=== PATIENT | male | born 1955 | race Caucasian/White ===

== ENCOUNTER → 2017-09-08 | Outpatient (CLI) | payer BC ==
[2017-09-08 11:43] LABS: HCT 44.1 % (39.0-53.0); HGB 13.8 gm/dL (13.0-17.5); Hypochromasia Slight; MCH 28.7 pg (25.0-35.0); MCHC 31.3 g/dL (31.0-37.0); MCV 91.8 fL (80.0-100.0); Mean Platelet Volume 7.7; Platelet Count 199 k/uL (150-450); RBC 4.81 m/uL (4.30-5.90); RDW 12.9 % (11.5-15.5); WBC 8.1 k/uL (3.8-10.6)
[2017-09-08 11:49] LABS: Anion Gap 10 mmol/L; Blood Urea Nitrogen 17 mg/dL (9-20); Calcium 9.3 mg/dL (8.4-10.2); Carbon Dioxide 24 mmol/L (22-30); Chloride 104 mmol/L (98-107); Glucose 94 mg/dL (74-99); Potassium 4.4 mmol/L (3.5-5.1); Sodium 138 mmol/L (137-145)
== END | disposition home or self-care (01) ==
LOC: LABWHC1 10:44
PROVIDERS: ATTEND Internal Medicine Clinical Cardiac Electrophysiology
DX: I48.1 Persistent atrial fibrillation (principal); I47.1 Supraventricular tachycardia
CPT/HCPCS: 36415; 80048; 85027

== ENCOUNTER 2017-09-13 11:25 | Day surgery (SDC) | payer BC, OTHER ==
[2017-09-12 09:23] VITALS: BMI 34.8
[~2017-09-13 11:25] MED LIST: LIDOCAINE 1% 20 ML VIAL (10MG/ML) FOR IV START INTRADERMA PRN
[2017-09-13] MEDS: SODIUM CHLORIDE 0.9% 1,000 ML IV SCH ×2 (12:13→20:07)
[2017-09-13 12:25] LABS: INR 2.4 (<1.2); Prothrombin Time 21.6 sec (9.0-12.0)
[2017-09-13] MEDS ORDERED: SUCCINYLCHOLINE CHLORIDE 100 MG/5 ML SYR IV ONE (12:50)
[2017-09-13] MEDS ORDERED: fentaNYL (PF) 50 MCG/ML 2 ML AMP ONE (12:50)
[2017-09-13] MEDS ORDERED: PROTAMINE SULFATE 10 MG/ML 5 ML VIAL IV ONE (12:50)
[2017-09-13] MEDS ORDERED: MIDAZOLAM 2 MG/2 ML VIAL ONE (12:50)
[2017-09-13] MEDS ORDERED: NEOSTIGMINE 1 MG/ML 10 ML VIAL ONE (12:50)
[2017-09-13] MEDS ORDERED: PROPOFOL 10 MG/ML 20 ML VIAL IV ONE (12:50)
[2017-09-13] MEDS ORDERED: FUROSEMIDE 10 MG/ML 2 ML VIAL ONE (12:50)
[2017-09-13] MEDS ORDERED: HEPARIN SODIUM,PORCINE 10,000 UNIT/ML 1 ML VIAL ONE (12:50)
[2017-09-13] MEDS ORDERED: PHENYLEPHRINE-0.9% NACL SYG 1 MG/10 ML SYRINGE ONE (12:50)
[2017-09-13] MEDS ORDERED: LIDOCAINE 1% INJ 10MG/ML (20 ML MDV) ONE (12:50)
[2017-09-13] MEDS ORDERED: ROCURONIUM BROMIDE 10 MG/ML 10 ML VIAL IV ONE (12:50)
[2017-09-13] MEDS ORDERED: GLYCOPYRROLATE 0.2 MG/ML 2 ML VIAL ONE (12:50)
[2017-09-13] MEDS ORDERED: LIDOCAINE 2% (PF) 20 MG/ML 10 ML AMP SQ ONE (13:28)
[2017-09-13] MEDS ORDERED: HEPARIN SODIUM (1,000 UNIT/ML) 1,000 UNIT in SODIUM CHLORIDE 0.9% 1,000 ML IRRIGATION ONE ×2 (13:50→17:52)
[2017-09-13] MEDS ORDERED: HEPARIN SOD,PORK IN 0.45% NACL 25,000 UNIT in 0.45% NACL 1 500ML.BAG IV ONE (13:58)
[2017-09-13] MEDS ORDERED: SODIUM CHLORIDE 0.9% 1,000 ML IV ONE (17:37)
[2017-09-13] MEDS ORDERED: SODIUM CHLORIDE 0.9% 500 ML IV ONE (17:37)
[2017-09-13] MEDS ORDERED: ACETAMINOPHEN TAB 325 MG TAB PO PRN (18:07)
[2017-09-13] MEDS ORDERED: ACETAMINOPHEN IV (For NPO) 1,000 MG in EMPTY BAG 1 BAG IVPB ONE (18:07)
--- NOTE | 2017-09-13 19:41 | CE ---
CARDIAC ELECTROPHYSIOLOGY REPORT Joao Ulloa is a 62-year-old male patient who has post atrial fibrillation atrial tachycardia with RVR that is refractory to drug therapy, including amiodarone. He is brought in for mapping and ablation. He was complaining of shortness of breath, dizziness, lightheadedness and chest pain. Patient was brought to the EP lab in a fasting state. Written informed consent was obtained prior to the procedure. The initial part of the procedure was performed under conscious sedation with MAC and later with other general anesthesia. Patient was intubated. Venous sheaths were placed in the right and left femoral veins. Multiple diagnostic and mapping and ablation catheters were placed. The right atrium and the coronary sinus were initially mapped with a PentaRay catheter and a broad septal activation was noted in the right atrium. Coronary sinus activation was late. The CS activation was neither concentric nor eccentric. Tachycardia cycle length 236 milliseconds. Intracardiac echocardiography was performed. Interatrial septum was identified. There was no evidence of pericardial effusion at the start of the study. Transseptal catheterization was performed. RA pressure 27/6/17 mmHg and LA pressure 55/5/25 mmHg. Activation mapping of the left atrium was performed. Scar mapping was performed. The earliest site of activation was noted along the anterior roof where the previous roof line had been made. When RF ablation was completed with linear ablation there was a change in the cycle length as well as in the activation pattern to about 240 to 250 milliseconds, and this became a concentric activation. Activation mapping was once again performed for the second tachycardia and the earliest activation was at the base of the left atrial appendage on its anterior aspect. RF ablation here was performed and it resulted in a slight increase in tachycardia cycle length, but no change in the activation pattern. The earlier sites which were targeted for ablation showed negative unipolar signals; however, the slope was not sharply negative. Three-dimensional mapping once again was performed. An activation map was once again made, and this time there was a shift in the activation pattern a little more superiorly towards the roof in the groove between the left superior pulmonary vein and the left atrial appendage. Detailed mapping was performed here and at an interval point good bipolar and unipolar signals were obtained and RF ablation here resulted in lengthening of the tachycardia to 270 to 275 milliseconds, but tachycardia did not terminate. Activation pattern did not change. Repeat 3D mapping was once again performed, and a very detailed map was once again performed with PentaRay. PentaRay catheter was used along with the mapping ablation catheter for 3D mapping. Once again there was a slight shift in the activation pattern and RF ablation of the earlier site did not result in termination of the tachycardia. Where the bipolar signals were fairly early, the unipolar signals were also early, but the slope was not sharply negative. The negative slope was slightly shallow. RF ablation did not terminate the tachycardia. 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 The pulmonary veins were mapped in detail during each 3D map that was created and were completely isolated. At this point, electrical cardioversion was performed and sinus rhythm was restored. All catheters were removed and the patient was transferred back to telemetry. Heparin was reversed with protamine and hemostasis was assured. RESULT: Post atrial fibrillation residual atrial tachycardia. Detailed mapping and ablation was performed. 1. Roof tachycardia was terminated. 2. The second tachycardia was an epicardial atrial tachycardia with shifting earlier sites as ablation proceeded, as evidenced during the multiple activation maps that were made of the tachycardia following each ablation. There was slight lengthening of the tachycardia cycle length of 270 milliseconds, but termination never occurred. This was a long procedure and it took greater than 5 hours for mapping of this atrial tachycardia. Multiple left atrial maps were made. Multiple activation maps of the left atrium were made and the earliest set of activation showed a shifting pattern. The patient tolerated the procedure well without any acute complications. PLAN: Increase amiodarone to 400 mg p.o. daily for one month, then reduce it to 200 mg p.o. daily thereafter. If he has recurrence of atrial tachycardia, then a pacer should be employed. MMODL / IJN: [id number] / ANALY
[2017-09-13] MEDS: LACTATED RINGERS 1,000 ML IV SCH (20:06)
[2017-09-13] MEDS: HYDROcodone/APAP 5-325MG 1 EACH TAB PO PRN (20:10)
[2017-09-14] MEDS: LACTATED RINGERS 1,000 ML IV SCH (05:51)
[2017-09-14] MEDS: HYDROcodone/APAP 5-325MG 1 EACH TAB PO PRN ×2 (07:00→11:21)
--- NOTE | 2017-09-14 08:17 | P.DS ---
Providers Attending physician: Neil Tolliver Primary care physician: [facility] Course: Patient is doing well. He has been emulating hallways. He is sitting in bed eating breakfast. No chest discomfort no dizziness lightheadedness no undue shortness of breath. Groins revealed well no hematoma On examination his vitals are stable Blood pressure 119/64 mmHg pulse rate in the 70s Afebrile 97.6F normal respirations Breath sounds are normal no rhonchi no crackles Heart sounds are normal no murmurs or gallop no rub Abdomen soft nontender Start is warm no edema No groin hematomas Impression Persistent atrial fibrillation failed flecainide Pulmonary vein isolation and the pulmonary veins were quiescent during 3-D mapping Extra pulmonary atrial tachycardias mapped Atrial tachycardia cycle length to 36 ms, terminated with completion of the roof line Epicardial atrial tachycardia 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 Verma in 2 weeks Patient Condition at Discharge: Stable Plan - Discharge Summary Discharge Rx Participant: No New Discharge Prescriptions: New RX: Amiodarone [Cordarone] 400 mg PO DAILY #90 tablet Discontinued RX: Amiodarone [Cordarone] 100 mg PO DAILY Metoprolol Succinate [Toprol Xl] 50 mg PO DAILY No Action RX: Tamsulosin [Flomax] 0.4 mg PO HS RX: Docusate [Colace] 200 mg PO DAILY Warfarin [Coumadin] 2 mg PO SUTUTHSA Warfarin [Coumadin] 3 mg PO MOWEFR RX: Verapamil Sr [Isoptin Sr] 240 mg PO DAILY Discharge Medication List RX: Tamsulosin [Flomax] 0.4 mg PO HS 10/23/15 [History] RX: Docusate [Colace] 200 mg PO DAILY 11/12/15 [History] RX: Verapamil Sr [Isoptin Sr] 240 mg PO DAILY 09/12/17 [History] Warfarin [Coumadin] 2 mg PO SUTUTHSA 09/12/17 [History] Warfarin [Coumadin] 3 mg PO MOWEFR 09/12/17 [History] RX: Amiodarone [Cordarone] 400 mg PO DAILY #90 tablet 09/13/17 [Rx] Follow up Appointment(s)/Referral(s): Neil Tolliver MD [STAFF PHYSICIAN] - 2 Weeks Activity/Diet/Wound Care/Special Instructions: Post EP study - Ablation instructions 1. Keep access sites dry for 2 days. 2. No heavy lifting or straining for 2 days. 3. Avoid bending the hips repeatedly for 2 days. 4. You may go up and down stairs slowly Call if the following is noted 1. Bleeding, increasing swelling or pain at the access sites. 2. Increasing chest discomfort, especially upon taking a deep breath. 3. Increasing shortness of breath, at rest or with exertion. 4. Undue cough / phlegm 5. Difficulty or pain while swallowing. 6. Pain or change in color in the extremities. 7. Fever, chills, rigors. 8. Increasing headache or neurologic symptoms. 9. Dizziness, fainting, palpitations Discharge Disposition: HOME SELF-CARE
[2017-09-14 08:26] VITALS: PULSE 67; RESP 18
[2017-09-14] MEDS ORDERED: VERAPAMIL SR 120 MG TABLET.ER PO SCH (09:00)
[2017-09-14] MEDS ORDERED: AMIODARONE 200 MG TAB PO SCH (09:00)
[2017-09-14] MEDS ORDERED: AMIODARONE 200 MG TAB PO STA (09:43)
[2017-09-14 13:11] VITALS: BP 121/73; TEMP 97.4
[2017-09-14] MEDS: SODIUM CHLORIDE 0.9% 1,000 ML IV SCH (15:44)
[2017-09-14] MEDS ORDERED: WARFARIN 3 MG TAB PO SCH (18:00)
[2017-09-15] MEDS ORDERED: WARFARIN 2 MG TAB PO SCH (18:00)
== END 2017-09-14 15:50 | disposition home or self-care (01) ==
LOC: CATHEP 11:25 → 3OBS 18:03 → CATHEP 09-14 15:50
PROVIDERS: ATTEND Internal Medicine Clinical Cardiac Electrophysiology
DX: I47.1 Supraventricular tachycardia (principal); I48.1 Persistent atrial fibrillation; I25.10 Atherosclerotic heart disease of native coronary artery without angina pectoris; I10 Essential (primary) hypertension; Z87.891 Personal history of nicotine dependence; Z82.49 Family history of ischemic heart disease and other diseases of the circulatory system; G47.33 Obstructive sleep apnea (adult) (pediatric); Z99.89 Dependence on other enabling machines and devices; Z79.01 Long term (current) use of anticoagulants; Z79.899 Other long term (current) drug therapy
CPT/HCPCS: 93462; 93662; 93613; 93653; 85347; 85610; C1894 ×2; C1769 ×3; C1730; C1731; C1759; C1893; C1732; J2250; J2720; J1644 ×3; J1940; J2710; J2001 ×2; J3010; J2370; J0330; J2704

== ENCOUNTER → 2017-10-13 | Outpatient (CLI) | payer BC ==
[2017-10-13 11:08] LABS: HCT 44.5 % (39.0-53.0); HGB 14.2 gm/dL (13.0-17.5); MCH 28.9 pg (25.0-35.0); MCHC 31.9 g/dL (31.0-37.0); MCV 90.6 fL (80.0-100.0); Mean Platelet Volume 7.9; Platelet Count 176 k/uL (150-450); RBC 4.91 m/uL (4.30-5.90); RDW 14.1 % (11.5-15.5); WBC 6.2 k/uL (3.8-10.6)
[2017-10-13 11:28] LABS: Calcium 9.4 mg/dL (8.4-10.2); Potassium 4.9 mmol/L (3.5-5.1)
== END | disposition home or self-care (01) ==
LOC: LABWHC1 10:41
PROVIDERS: ATTEND Internal Medicine Clinical Cardiac Electrophysiology
DX: I48.1 Persistent atrial fibrillation (principal)
CPT/HCPCS: 36415; 80048; 85027

== ENCOUNTER 2017-10-27 10:18 | Day surgery (SDC) | payer BC ==
[2017-10-24 09:15] VITALS: BMI 34.8
[~2017-10-27 10:18] MED LIST changes: +LACTATED RINGERS 1,000 ML IV SCH; -LIDOCAINE 1% 20 ML VIAL (10MG/ML) FOR IV START INTRADERMA PRN; +SODIUM CHLORIDE 0.9% 1,000 ML IV SCH
[2017-10-27 10:47] VITALS: RESP 16; TEMP 98.2
[2017-10-27] MEDS ORDERED: PROPOFOL 10 MG/ML 20 ML VIAL IV ONE (11:15)
[2017-10-27] MEDS ORDERED: IV FLUID CONTINUATION 450 ML IV ONE (11:15)
--- NOTE | 2017-10-27 11:36 | P.PCN ---
Preoperative Diagnosis: Diagnosis: Refractory atrial tachycardia currently on amiodarone Electrical cardioversion Successful electrical cardioversion with single 360 J biphasic shock Plan Continue amiodarone 400 mg by mouth daily for one month and then reduce to 200 mg by mouth daily Consider MULTAQ as an alternative Follow-up in 4-6 weeks Anesthesia: MAC Condition: stable Disposition: same day
[2017-10-27 11:49] VITALS: PULSE 71
[2017-10-27 11:57] LABS: INR 1.6 (<1.2); Prothrombin Time 14.5 sec (9.0-12.0)
[2017-10-27 13:14] VITALS: BP 123/81
== END 2017-10-27 13:22 | disposition home or self-care (01) ==
LOC: CATHEP 10:18
PROVIDERS: ATTEND Internal Medicine Clinical Cardiac Electrophysiology
DX: I48.1 Persistent atrial fibrillation (principal); Z79.01 Long term (current) use of anticoagulants; I25.10 Atherosclerotic heart disease of native coronary artery without angina pectoris; I10 Essential (primary) hypertension; Z87.891 Personal history of nicotine dependence; E78.5 Hyperlipidemia, unspecified; Z82.49 Family history of ischemic heart disease and other diseases of the circulatory system; G47.33 Obstructive sleep apnea (adult) (pediatric); Z99.89 Dependence on other enabling machines and devices; Z79.899 Other long term (current) drug therapy
CPT/HCPCS: 92960; 85610; J2704

== ENCOUNTER → 2018-01-06 | Outpatient (CLI) | payer BC ==
[2018-01-06 10:36] LABS: HCT 42.4 % (39.0-53.0); HGB 13.9 gm/dL (13.0-17.5); MCH 30.3 pg (25.0-35.0); MCHC 32.9 g/dL (31.0-37.0); Mean Platelet Volume 6.8; Platelet Count 178 k/uL (150-450); RBC 4.61 m/uL (4.30-5.90); RDW 15.9 % (11.5-15.5); WBC 5.9 k/uL (3.8-10.6)
[2018-01-06 10:50] LABS: Calcium 9.9 mg/dL (8.4-10.2); Potassium 4.7 mmol/L (3.5-5.1)
== END | disposition home or self-care (01) ==
LOC: LABWHC1 10:12
PROVIDERS: ATTEND Internal Medicine Clinical Cardiac Electrophysiology
DX: I49.5 Sick sinus syndrome (principal); I48.1 Persistent atrial fibrillation
CPT/HCPCS: 36415; 80048; 85027

== ENCOUNTER 2018-01-17 13:30 | Day surgery (SDC) | payer BC ==
[2018-01-11 11:04] VITALS: BMI 34.8
[~2018-01-17 13:30] MED LIST changes: -LACTATED RINGERS 1,000 ML IV SCH; -SODIUM CHLORIDE 0.9% 1,000 ML IV SCH; +ceFAZolin 1,000 MG in SODIUM CHLORIDE 0.9% IRRIGATIO 250 ML IRRIGATION ONE; +ceFAZolin IN SWFI 2 GM/20 ML SYRINGE IVP ONE
[2018-01-17] MEDS: SODIUM CHLORIDE 0.9% 1,000 ML IV SCH (13:58)
[2018-01-17 14:22] LABS: INR 2.7 (<1.2)
[2018-01-17] MEDS ORDERED: ceFAZolin IN SWFI 2 GM/20 ML SYRINGE IVP ONE (14:27)
[2018-01-17] MEDS ORDERED: fentaNYL (PF) 50 MCG/ML 2 ML AMP ONE (14:34)
[2018-01-17] MEDS ORDERED: PROPOFOL 10 MG/ML 20 ML VIAL IV ONE (14:34)
[2018-01-17] MEDS ORDERED: MIDAZOLAM 2 MG/2 ML VIAL ONE (14:34)
[2018-01-17] MEDS ORDERED: IOPAMIDOL-250 50ML BTL IV ONE (14:52)
[2018-01-17] MEDS ORDERED: ACETAMINOPHEN IV (For NPO) 1,000 MG in EMPTY BAG 1 BAG IVPB ONE (14:58)
[2018-01-17] MEDS ORDERED: ACETAMINOPHEN TAB 325 MG TAB PO PRN (14:58)
[2018-01-17] MEDS ORDERED: LIDOCAINE 1% INJ 10MG/ML (20 ML MDV) ONE ×2 (15:02→15:32)
[2018-01-17] MEDS ORDERED: LIDOCAINE 2% SYG (PF) 100 MG/5 ML MISCELLANE ONE (15:07)
[2018-01-17] MEDS ORDERED: LIDOCAINE 1% INJ 10MG/ML (20 ML MDV) SQ ONE ×2 (15:31→15:41)
[2018-01-17] MEDS ORDERED: IOPAMIDOL-370 50ML BTL INJ ONE (17:20)
[2018-01-17] MEDS: HYDROcodone/APAP 5-325MG 1 EACH TAB PO PRN (20:35)
[2018-01-17] MEDS: ceFAZolin IN SWFI 2 GM/20 ML SYRINGE IVP SCH (22:07)
[2018-01-18] MEDS: ceFAZolin IN SWFI 2 GM/20 ML SYRINGE IVP SCH ×3 (03:03→14:11)
[2018-01-18] MEDS: HYDROcodone/APAP 5-325MG 1 EACH TAB PO PRN ×3 (03:03→14:10)
[2018-01-18 07:36] VITALS: RESP 18
[2018-01-18] MEDS: SODIUM CHLORIDE 0.9% 1,000 ML IV SCH ×2 (08:00)
--- NOTE | 2018-01-18 08:12 | XR ---
EXAMINATION TYPE: XR chest 2V DATE OF EXAM: 01/18/2018 COMPARISON: 07/09/2013 TECHNIQUE: PA and lateral views submitted. HISTORY: Post pacemaker placement FINDINGS: The lungs are clear and there is no pneumothorax, pleural effusion, or focal pneumonia. Hypertrophi c change of the spine. There appears to be a double lead pacemaker with both overlying the ventricular region. Arthropathy o f the AC joints. IMPRESSION: 1. No acute process.
[2018-01-18] MEDS ORDERED: LOSARTAN 50 MG TAB PO SCH (09:00)
[2018-01-18] MEDS ORDERED: AMIODARONE 200 MG TAB PO SCH (09:00)
[2018-01-18] MEDS ORDERED: ATORVASTATIN 40 MG TAB PO SCH (09:00)
[2018-01-18] MEDS ORDERED: VERAPAMIL SR 120 MG TABLET.ER PO SCH (09:00)
--- NOTE | 2018-01-18 09:30 | CE ---
CARDIAC ELECTROPHYSIOLOGY REPORT Mr. Joao Ulloa is a 62-year-old male patient who has refractory atrial fibrillation refractory to treatment as well as refractory to rate control medications. His rates are not controlled and he is brought in for implantation of permanent pacemaker (physiologic pacing versus Bi V pacing) prior to AV junction modification which will be performed electively in the next 6 weeks. The patient was brought to the EP lab in a fasting state. Written informed consent was obtained prior to the procedure. The right groin was prepped and draped as per protocol. Venous sheath was placed in the right femoral vein. Via this, an [place] catheter was placed in the His bundle area for His bundle pacing and recording. The left pectoral area was then prepped and draped as per protocol and 1% lidocaine was used for local anesthesia. A 4 cm incision was made parallel to the deltopectoral groove, about 1.5 cm medial to the incision was carried down to the level of the pectoralis muscle. A subfascial pocket was made. Hemostasis was assured. The left axillary vein was accessed at 2 separate points under fluoroscopy and via appropriately- sized introducer sheaths, the following leads were placed. The RV lead was 58 cm Medtronic lead model #5076, serial # [id number]. This was screwed in the RV septum. R-waves 30 mV, pacing impedance 879 ohms, pacing threshold 0.6 V at 0.5 milliseconds. The 10 V test was negative. Next the sheath was placed with a Medtronic model #3830, His bundle lead for physiologic septal pacing. The His bundle was identified in unipolar and bipolar mode and the lead was screwed in. There was a clear His bundle spike noted with HV interval similar to the baseline HV interval and the lead was stable. However, the thresholds were very high and were greater than 8 V at 1 millisecond. Multiple attempts were made to screw the lead in different orientations and despite obtaining His bundle signal, deep placement of the lead with between 8 to 10 turns of the lead, and documented His bundle only intermittent capture could be obtained at high output. Therefore, this lead was unscrewed and removed and LV lead was placed. Coronary sinus accessed. A venogram was performed and there was a diminutive anterolateral vein, which was tortuous and middle cardiac vein that connected to the central lateral vein. An LV lead [employer] model #1458Q, 86 cm in length and serial #[id number] was positioned in the middle cardiac vein and then into the branch that connected to the lateral vein. The final lead position for the LV poles was in the lateral LV and excellent thresholds were obtained here, 0.7 V at 0.5 milliseconds, pacing impedance of 1432 ohms. The 10 V test was negative. The leads were then secured to the underlying pectoralis fascia using 2 nonabsorbable sutures. Pocket was irrigated with antibiotic solution. Leads were connected to the generator. The HANDER IN-P [place] Quad HANDER IN P MRI model #W4TR02, serial #[id number]. The leads and the generator were then placed in subfascial pocket. The wound was closed in 3 layers and dressed per protocol. The venous sheath in the right femoral vein and the catheter were then removed at the end of the procedure. RESULT: Successful biventricular pacemaker implantation with an RV lead and LV lead that was finally positioned in the lateral LV via the middle cardiac vein. PLAN: AV node modification in 6 weeks for biventricular pacing for management of refractory atrial fibrillation with RVR despite multiple antiarrhythmic therapies and AV david blocking drugs. MMODL / IJN: [id number] /
--- NOTE | 2018-01-18 09:35 | DS ---
DISCHARGE SUMMARY Mr. Lupillo Ulloa is doing well. His vitals are stable. He is lying comfortably in bed. He has been walking around. Blood pressure 125/85 mmHg, pulse rate 110 beats per minute. He is afebrile, 97.7 degrees Fahrenheit. Head and neck examination is normal. Heart sounds are normal. Lungs are clear on auscultation. Extremities are warm. No edema. The pacemaker site has healed well. There is minimal soakage. IMPRESSION: 1. Permanent atrial fibrillation, refractory to multiple antiarrhythmic therapies and inadequate rate control despite multiple AV david blocking drugs. 2. Status post biventricular pacemaker implantation in preparation for AV node ablation in the near future for rate control of atrial fibrillation and bi V pacing with underlying bradycardia. The patient will be discharged home after IV antibiotics today. MMODL / IJN: [id number] /
[2018-01-18 11:50] VITALS: BP 124/84; PULSE 114; TEMP 98.4
[2018-01-18] MEDS ORDERED: WARFARIN 3 MG TAB PO SCH (18:00)
[2018-01-18] MEDS ORDERED: TAMSULOSIN 0.4 MG CAP.ER.24H PO SCH (21:00)
[2018-01-18] MEDS ORDERED: DOCUSATE 100 MG CAP PO SCH (21:00)
[2018-01-19] MEDS ORDERED: WARFARIN 2 MG TAB PO SCH (18:00)
== END 2018-01-18 15:56 | disposition home or self-care (01) ==
LOC: CATHEP 13:30 → 3OBS 19:14 → CATHEP 01-18 15:56
PROVIDERS: ATTEND Internal Medicine Clinical Cardiac Electrophysiology
DX: I48.2 Chronic atrial fibrillation (principal); I10 Essential (primary) hypertension; E78.5 Hyperlipidemia, unspecified; G47.33 Obstructive sleep apnea (adult) (pediatric); K21.9 Gastro-esophageal reflux disease without esophagitis; Z87.891 Personal history of nicotine dependence; Z79.01 Long term (current) use of anticoagulants; Z79.899 Other long term (current) drug therapy
CPT/HCPCS: 33225; 33208; 85610; 71046; C1769 ×7; C1894; C1892; C1730 ×2; C1898; C1900 ×2; C2621; J2250; J0690 ×3; J2001 ×2; J3010; J0131; J2704; Q9966; Q9967

== ENCOUNTER → 2018-02-22 | Outpatient (CLI) | payer BC ==
[2018-02-22 09:32] LABS: HCT 45.9 % (39.0-53.0); HGB 14.4 gm/dL (13.0-17.5); MCH 29.8 pg (25.0-35.0); MCHC 31.5 g/dL (31.0-37.0); MCV 94.7 fL (80.0-100.0); Mean Platelet Volume 7.5; Platelet Count 187 k/uL (150-450); RBC 4.84 m/uL (4.30-5.90); RDW 13.1 % (11.5-15.5); WBC 6.8 k/uL (3.8-10.6)
[2018-02-22 10:01] LABS: Potassium 3.9 mmol/L (3.5-5.1)
== END | disposition home or self-care (01) ==
LOC: LABPAT 09:13
PROVIDERS: ATTEND Internal Medicine Clinical Cardiac Electrophysiology
DX: Z01.812 Encounter for preprocedural laboratory examination (principal); I48.1 Persistent atrial fibrillation; I49.5 Sick sinus syndrome
CPT/HCPCS: 36415; 80051; 82565; 82947; 84520; 85027

== ENCOUNTER 2018-02-28 06:52 | Day surgery (SDC) | payer BC ==
[2018-02-22 13:46] VITALS: BMI 34.2
[~2018-02-28 06:52] MED LIST changes: +DEXAMETHASONE SOD PHOSPHATE 10 MG/ML 1 ML VIAL IV ONE; +LACTATED RINGERS 1,000 ML IV SCH; +LIDOCAINE 1% 20 ML VIAL (10MG/ML) FOR IV START INTRADERMA PRN; +MIDAZOLAM 2 MG/2 ML VIAL IV PRN; +ONDANSETRON 4 MG/2 ML VIAL IVP ONE; +SODIUM CHLORIDE 0.9% 1,000 ML IV SCH
[2018-02-28 07:47] LABS: INR 1.8 (<1.2); Prothrombin Time 16.3 sec (9.0-12.0)
[2018-02-28] MEDS ORDERED: MIDAZOLAM 2 MG/2 ML VIAL ONE (08:13)
[2018-02-28] MEDS ORDERED: ATROPINE SULFATE 0.1 MG/ML 10ML SYRINGE ONE (08:13)
[2018-02-28] MEDS ORDERED: fentaNYL (PF) 50 MCG/ML 2 ML AMP ONE (08:13)
[2018-02-28] MEDS ORDERED: PROPOFOL 10 MG/ML 20 ML VIAL IV ONE (08:13)
[2018-02-28] MEDS ORDERED: LIDOCAINE 1% INJ 10MG/ML (20 ML MDV) ONE (08:30)
[2018-02-28] MEDS ORDERED: LIDOCAINE 1% INJ 10MG/ML (20 ML MDV) SQ ONE (08:42)
[2018-02-28] MEDS ORDERED: HYDROcodone/APAP 5-325MG 1 EACH TAB PO PRN (09:09)
[2018-02-28] MEDS ORDERED: ACETAMINOPHEN IV (For NPO) 1,000 MG in EMPTY BAG 1 BAG IVPB ONE (09:09)
[2018-02-28] MEDS ORDERED: ACETAMINOPHEN TAB 325 MG TAB PO PRN (09:09)
--- NOTE | 2018-02-28 09:26 | P.PCN ---
Preoperative Diagnosis: Indication for the procedure Symptomatic, permanent atrial fibrillation with RVR has failed a rate control strategy as well as drug therapy with amiodarone and flecainide Status post biventricular pacemaker implant about 6 weeks back AV node ablation planned today for pace and ablated strategy for management of atrial fibrillation Procedure: Device interrogation with reprogramming prior to the procedure AV Node Ablation/modification. Device interrogation with reprogramming postprocedure Patient was brought to the EP lab in a fasting state. Written, informed consent was obtained prior to the procedure. Access was obtained, sheath placed in right femoral vein. 1. Preprocedure device interrogation and reprogramming Device interrogation with reprogramming performed. Rate responsiveness was turned off and the pacing rate was reprogrammed to a backup mode prior to ablation. Tachycardia detections turned off. Lead impedance is documented, sensing and pacing thresholds performed prior to the procedure Backup pacing, VVI 40 bpm 3. AV node ablation A Mapping/Ablation catheter was placed and right-sided AV node radiofrequency ablation/modification was performed. Complete heart block was achieved with occasional junctional escape rhythm above 40 bpm 4. Device programming postprocedure Post ablation, device reprogramming was performed. Base Pacing rate was programmed to 90 bpm. Patient's device was reprogrammed and the interrogated. RF mode turned on LV pacing threshold 1.75 V at 0.4 ms pacing impedance 1045 ohms RV pacing threshold 0.75 V at 0.5 ms pacing impedance of 456 ohms Vascular sheaths were removed at the end of the procedure, hemostasis was assured, the patient was then transferred to recovery room/telemetry in stable condition. Result: Successful ablation of the AV node. And reprogramming of the biventricular pacemaker Plan: Pacing at 90 bpm for 2 weeks. LV offset 20 ms Telemetry monitoring for 24 hours. Continue anticoagulation. Patient tolerated the procedure well without any acute complications Plan Discontinue amiodarone completely Discontinue verapamil completely Increase losartan 100 mg by mouth daily for hypertension management Continue anticoagulation with Coumadin Follow-up in the device clinic in 2 weeks along with PT/INR check Condition: stable
--- NOTE | 2018-02-28 09:34 | P.HPCAR ---
History of Present Illness Final diagnosis Permanent atrial fibrillation refractory to therapy with AV david blocking drugs , radiofrequency ablation, antiarrhythmic drug therapy, symptomatic with RVR Status post biventricular pacemaker implantation and AV node ablation Hypertension Obesity Obstructive sleep apnea Physical Exam Vitals: Vital Signs Temp Pulse Resp BP Pulse Ox 02/28/18 07:37 97.8 F 110 H 18 116/75 94 L Intake and Output 02/27/18 02/28/18 02/28/18 22:59 06:59 14:59 Intake Total 220 Balance 220 Intake: IV 220 Past Medical History Past Medical History: Atrial Fibrillation, GERD/Reflux, Hyperlipidemia, Hypertension, Osteoarthritis (OA), Prostate Disorder, Sleep Apnea/CPAP/BIPAP Additional Past Medical History / Comment(s): Seasonal allergies, COLITIS, ENLARGED PROSTATE,See Dr Tolliver's h&p for cardiac hx. History of Any Multi-Drug Resistant Organisms: None Reported Past Surgical History: Cardiac Ablation, Heart Catheterization Additional Past Surgical History / Comment(s): HEMORROIDECTOMY,COLONOSCOPY/EGD, UMBILCAL HERNIA, TILT TABLE TEST, HIATAL HERNIA REPAIR, ablation x3, pacemaker insertion. Past Anesthesia/Blood Transfusion Reactions: Motion Sickness Smoking Status: Former smoker - Past Family History Mother Family Medical History: Cancer Sister(s) Family Medical History: Cancer Father Family Medical History: No Reported History Physical Examination Vital Signs Temp Pulse Resp BP Pulse Ox 02/28/18 07:37 97.8 F 110 H 18 116/75 94 L Intake and Output 02/27/18 02/28/18 02/28/18 22:59 06:59 14:59 Intake Total 220 Balance 220 Intake: IV 220 Results Coagulation 02/28/18 Range/Units 07:30 PT 16.3 H (9.0-12.0) sec Current Medications Generic Name Dose Route Start Last Admin Trade Name Freq PRN Reason Stop Dose Admin Acetaminophen 650 mg 02/28/18 09:09 Tylenol Tab PO Q6HR PRN Mild Pain Hydrocodone Bitart/Acetaminophen 1 each 02/28/18 09:09 [place] 5-325 PO Q4HR PRN Moderate Pain Atorvastatin Calcium 40 mg 03/01/18 09:00 Lipitor PO DAILY JIHAN Acetaminophen 1,000 mg/ IV 100 mls @ 400 mls/hr 02/28/18 09:09 Solution IVPB 02/28/18 09:23 ONCE ONE Lidocaine HCl 0.1 ml 02/28/18 05:00 .Xylocaine 1% Inj (10mg/Ml) For Iv Start INTRADERMA PER PROTOCOL PRN IV Start Losartan Potassium 50 mg 03/01/18 09:00 Cozaar PO QAM JIHAN Midazolam HCl 2 mg 02/28/18 05:00 Versed IV 03/01/18 05:01 ONCE PRN Anxiety Sodium Chloride 12 ml 02/28/18 21:00 Saline Flush IV Q12HR JIHAN Tamsulosin HCl 0.4 mg 02/28/18 21:00 Flomax PO HS JIHAN Verapamil HCl 120 mg 03/01/18 09:00 Isoptin Sr PO QAM JIHAN Warfarin Sodium 1 mg 03/01/18 09:00 Coumadin PO DAILY JIHAN Warfarin Sodium 1 mg 02/28/18 10:00 Coumadin PO 02/28/18 10:01 ONCE ONE Intake and Output 02/27/18 02/28/18 02/28/18 22:59 06:59 14:59 Intake Total 220 Balance 220 Intake: IV 220
--- NOTE | 2018-02-28 09:48 | LTR ---
February 28, 2018 Re: RodneychinaJoao Dear Dale: I had the pleasure of seeing Mr. Ulloa in electrophysiology followup. He has permanent atrial fibrillation with RVR and has failed amiodarone as well as flecainide as well as ablation therapy for A. fib. He underwent a biventricular pacemaker implantation several weeks back and today he is brought in for an AV node ablation. This was performed successfully. I will stop amiodarone completely along with verapamil and will increase the dose of losartan to 100 mg p.o. daily for blood pressure management. He will continue Coumadin. Thank you for entrusting me in the care of your patient. Warm regards. Sincerely, MD WARREN Tesfaye / JENNIFER: [id number] /
[2018-02-28] MEDS ORDERED: WARFARIN 1 MG TAB PO ONE (18:00)
[2018-02-28 19:28] VITALS: RESP 16
[2018-02-28] MEDS ORDERED: TAMSULOSIN 0.4 MG CAP.ER.24H PO SCH (21:00)
[2018-03-01 07:10] LABS: INR 2.2 (<1.2)
[2018-03-01 07:19] VITALS: BP 111/79; PULSE 90; TEMP 98.5
--- NOTE | 2018-03-01 08:10 | P.DS ---
Providers Attending physician: Neil Tolliver Primary care physician: [facility] Course: Patient is doing well following AV node ablation. He feels better. No dizziness lightheadedness no shortness of breath he's been ablating around the floor. Afebrile 98.5F pulse rate 90, blood pressure 111/79 mmHg Breath sounds are clear no rhonchi no crackles Heart sounds are normal normal S1 normal S2 is regular Abdomen soft Groins of healed well his no hematoma in the right groin Breath sounds are clear no adventitious sounds Impression refractory, atrial fibrillation, now permanent A. fib Status post biventricular pacemaker implantation for 6 weeks. Status post AV junction ablation yesterday Plan is to discharge home today and follow-up in the office in 2 weeks for pacemaker reprogramming stop verapamil Stop amiodarone Increase losartan to 100 mg by mouth daily Continue Coumadin PT/INR check 5 days Plan - Discharge Summary Discharge Rx Participant: No New Discharge Prescriptions: New Losartan [Cozaar] 100 mg PO DAILY #90 tab Discontinued Amiodarone HCl [Pacerone] 200 mg PO QAM Verapamil HCl [Verapamil ER] 120 mg PO QAM Losartan Potassium [Cozaar] 50 mg PO QAM No Action Tamsulosin [Flomax] 0.4 mg PO HS Docusate [Colace] 200 mg PO HS Warfarin [Coumadin] 1 mg PO DAILY Atorvastatin [Lipitor] 40 mg PO DAILY Discharge Medication List Tamsulosin [Flomax] 0.4 mg PO HS 10/23/15 [History] Docusate [Colace] 200 mg PO HS 11/12/15 [History] Warfarin [Coumadin] 1 mg PO DAILY 09/12/17 [History] Atorvastatin [Lipitor] 40 mg PO DAILY 01/11/18 [History] Losartan [Cozaar] 100 mg PO DAILY #90 tab 02/28/18 [Rx] Follow up Appointment(s)/Referral(s): Neil Tolliver MD [STAFF PHYSICIAN] - 2 Weeks (Device clinic follow-up in 2 weeks for pacemaker reprogramming following AV node ablation, attention danika/joint/telemetry Follow-up with Dr. Verma in 4 months. Please reschedule by appointment accordingly) Activity/Diet/Wound Care/Special Instructions: Post EP study - Ablation instructions 1. Keep access sites dry for 2 days. 2. No heavy lifting or straining for 2 days. 3. Avoid bending the hips repeatedly for 2 days. 4. You may go up and down stairs slowly Call if the following is noted 1. Bleeding, increasing swelling or pain at the access sites. 2. Increasing chest discomfort, especially upon taking a deep breath. 3. Increasing shortness of breath, at rest or with exertion. 4. Undue cough / phlegm 5. Difficulty or pain while swallowing. 6. Pain or change in color in the extremities. 7. Fever, chills, rigors. 8. Increasing headache or neurologic symptoms. 9. Dizziness, fainting, palpitations Stop amiodarone Stop verapamil Increase losartan to 100 mg by mouth daily Continue Coumadin PT/INR check in 2 weeks at the same time as pacemaker reprogramming [facility] Discharge Disposition: HOME SELF-CARE
[2018-03-01] MEDS ORDERED: LOSARTAN 50 MG TAB PO SCH (09:00)
[2018-03-01] MEDS ORDERED: VERAPAMIL SR 120 MG TABLET.ER PO SCH (09:00)
[2018-03-01] MEDS ORDERED: ATORVASTATIN 40 MG TAB PO SCH (09:00)
[2018-03-01] MEDS ORDERED: WARFARIN 1 MG TAB PO SCH (18:00)
== END 2018-03-01 10:24 | disposition home or self-care (01) ==
LOC: CATHEP 06:52 → 3OBS 09:08 → CATHEP 03-01 10:24
PROVIDERS: ATTEND Internal Medicine Clinical Cardiac Electrophysiology
DX: I48.2 Chronic atrial fibrillation (principal); I10 Essential (primary) hypertension; E78.5 Hyperlipidemia, unspecified; K21.9 Gastro-esophageal reflux disease without esophagitis; N40.0 Benign prostatic hyperplasia without lower urinary tract symptoms; G47.33 Obstructive sleep apnea (adult) (pediatric); Z79.01 Long term (current) use of anticoagulants; Z87.891 Personal history of nicotine dependence; Z79.899 Other long term (current) drug therapy; Z99.89 Dependence on other enabling machines and devices; Z95.0 Presence of cardiac pacemaker; M19.90 Unspecified osteoarthritis, unspecified site; E66.9 Obesity, unspecified; Z68.34 Body mass index [BMI] 34.0-34.9, adult
CPT/HCPCS: 93650; 85610 ×2; C1894; C1769; C1733; C1893; J2001; J0690

== ENCOUNTER 2019-03-13 06:57 | Day surgery (SDC) | payer BC ==
[2019-03-08 15:57] VITALS: BMI 35.5
[~2019-03-13 06:57] MED LIST changes: -DEXAMETHASONE SOD PHOSPHATE 10 MG/ML 1 ML VIAL IV ONE; -MIDAZOLAM 2 MG/2 ML VIAL IV PRN; -ONDANSETRON 4 MG/2 ML VIAL IVP ONE; -SODIUM CHLORIDE 0.9% 1,000 ML IV SCH; -ceFAZolin 1,000 MG in SODIUM CHLORIDE 0.9% IRRIGATIO 250 ML IRRIGATION ONE; -ceFAZolin IN SWFI 2 GM/20 ML SYRINGE IVP ONE
[2019-03-13 07:18] VITALS: TEMP 98
[2019-03-13] MEDS ORDERED: LIDOCAINE 1% INJ 10MG/ML (20 ML MDV) ONE (07:37)
[2019-03-13] MEDS ORDERED: PROPOFOL 10 MG/ML 20 ML VIAL IV ONE (07:37)
--- NOTE | 2019-03-13 07:42 | P.GSHP ---
History of Present Illness H&P Date: 03/13/19 Chief Complaint: History of colitis This is a 61-year-old male with history of colitis. Patient's had change in bowel habits with increasing of bowel movements Past Medical History Past Medical History: Atrial Fibrillation, GERD/Reflux, Hyperlipidemia, Hypertension, Osteoarthritis (OA), Prostate Disorder, Sleep Apnea/CPAP/BIPAP Additional Past Medical History / Comment(s): SEASONAL ALLERGIERS PROBLEMS, COL ITIS,ENLARGED PROSTATE, History of Any Multi-Drug Resistant Organisms: None Reported Past Surgical History: Cardiac Ablation, Heart Catheterization, Hernia Repair, Pacemaker Additional Past Surgical History / Comment(s): HEMORROIDECTOMY,COLONOSCOPY/EGD,UMBILCAL HERNIA, TILT TABLE TEST, HIATAL HERNIA REPAIR, ablation x3 Past Anesthesia/Blood Transfusion Reactions: No Reported Reaction, Motion Sickness Type of Cardiac Device: Permanent Pacemaker Device Placement Date:: 01/17/18 Smoking Status: Former smoker - Past Family History Mother Family Medical History: Cancer Sister(s) Family Medical History: Cancer Father Family Medical History: No Reported History Medications and Allergies Home Medications Medication Instructions Recorded Confirmed Type Tamsulosin [Flomax] 0.4 mg PO HS 10/23/15 03/13/19 History Docusate [Colace] 200 mg PO HS 11/12/15 03/13/19 History Warfarin [Coumadin] 1 mg PO MO 09/12/17 03/08/19 History Atorvastatin [Lipitor] 40 mg PO DAILY 01/11/18 03/13/19 History Losartan [Cozaar] 100 mg PO DAILY #90 tab 02/28/18 03/13/19 Rx Warfarin [Coumadin] 2 mg PO SUTUWETHFRSA 03/08/19 03/08/19 History Allergies Allergy/AdvReac Type Severity Reaction Status Date / Time No Known Allergies Allergy Verified 03/13/19 07:12 Surgical - Exam Vital Signs Temp Pulse Resp BP Pulse Ox 98.0 F 64 17 130/87 95 03/13/19 07:17 03/13/19 07:17 03/13/19 07:17 03/13/19 07:03/13/19 07:17 - General well developed, well nourished, no distress - Eyes PERRL - ENT normal pinna - Neck no masses - Respiratory normal expansion - Cardiovascular Rhythm: regular - Abdomen Abdomen: soft, non tender Assessment and Plan Assessment: History of colitis We will perform colonoscopy.
--- NOTE | 2019-03-13 08:04 | P.OP ---
Date of Procedure: 03/13/19 Preoperative Diagnosis: Colitis Postoperative Diagnosis: Right colon polyp Left colon polyp External hemorrhoids Procedure(s) Performed: colonoscopy Anesthesia: MAC Surgeon: Ziyad Ayon Pathology: other (Right and left colon polyp) Condition: stable Disposition: PACU Description of Procedure: The patient's placed on the operating room table in the supine position. He received IV sedation. He was then placed lateral position. Digital rectal exam was performed which revealed external hemorrhoids. The prostate was symmetric without nodules. The flexible colonoscope was then placed patient anus and passed throughout the entire colon. The ileocecal valve visualized. The cecum appeared normal. In the right colon there was a small polyp was removed with the cold forcep. Scope was withdrawn remainder the ascending and transverse colon appeared normal. There was a few scattered diverticula in the left colon. In the left colon was another large polyp. This is removed with the snare. The scope was then withdrawn into the sigmoid colon and this appeared normal except for a few scattered diverticula. The scope was then brought back the rectum was normal. Scope withdrawn for patient.
[2019-03-13 08:13] VITALS: RESP 18
[2019-03-13 08:24] VITALS: BP 112/75; PULSE 68
== END 2019-03-13 08:51 | disposition home or self-care (01) ==
LOC: ORWHC2ENDO 06:57
PROVIDERS: ATTEND Surgery
DX: D12.2 Benign neoplasm of ascending colon (principal); K63.3 Ulcer of intestine; K57.30 Diverticulosis of large intestine without perforation or abscess without bleeding; K64.4 Residual hemorrhoidal skin tags; K52.9 Noninfective gastroenteritis and colitis, unspecified; K21.9 Gastro-esophageal reflux disease without esophagitis; I48.91 Unspecified atrial fibrillation; E78.5 Hyperlipidemia, unspecified; I10 Essential (primary) hypertension; M19.90 Unspecified osteoarthritis, unspecified site; N40.0 Benign prostatic hyperplasia without lower urinary tract symptoms; G47.30 Sleep apnea, unspecified; Z99.89 Dependence on other enabling machines and devices; Z95.0 Presence of cardiac pacemaker; J30.2 Other seasonal allergic rhinitis; Z87.891 Personal history of nicotine dependence; Z79.01 Long term (current) use of anticoagulants; Z79.899 Other long term (current) drug therapy
CPT/HCPCS: 88305; 45380; 45385; J2001; J2704

== ENCOUNTER 2024-05-10 09:25 | Day surgery (SDC) | payer MEDICARE, BC ==
[~2024-05-10 09:25] MED LIST changes: -LACTATED RINGERS 1,000 ML IV SCH; +LIDOCAINE 1% (10MG/ML) FOR IV START INTRADERMA PRN; -LIDOCAINE 1% 20 ML VIAL (10MG/ML) FOR IV START INTRADERMA PRN
[2024-05-10 10:22] VITALS: TEMP 97.5
[2024-05-10] MEDS: IV FLUID CONTINUATION 1,000 ML IV ONE (10:33)
[2024-05-10] MEDS: LACTATED RINGERS 1,000 ML IV SCH (10:33)
[2024-05-10 10:59] LABS: INR 1.3 (<1.2); Prothrombin Time 13.9 sec (10.0-12.5)
[2024-05-10] MEDS ORDERED: PROPOFOL 10 MG/ML 20 ML VIAL IV ONE (11:15)
[2024-05-10] MEDS ORDERED: LIDOCAINE 1% INJ 10MG/ML (20 ML MDV) ONE (11:15)
--- NOTE | 2024-05-10 11:32 | P.OP ---
Date of Procedure: 05/10/24 Preoperative Diagnosis: Colon polyps Postoperative Diagnosis: Normal colonoscopy Procedure(s) Performed: Colonoscopy Anesthesia: MAC Surgeon: Ziyad Ayon Pathology: none sent Condition: stable Disposition: PACU Description of Procedure: The patient is placed on the endoscopy table in the lateral position. He received IV sedation. Digital rectal exams performed. There is a large amount of liquid stool. The flexible colonoscope was then placed patient anus passed throughout the colon. The ileocecal valve was not visualized secondary to poor colon prep. The visualized right colon appeared normal. The transverse colon appeared normal. The descending and sigmoid colon appeared normal. However the view of the mucosa was limited due to the poor colon prep. Scope was back to the rectum this appeared normal. Scope withdrawn for patient.
[2024-05-10 11:51] VITALS: BP 116/62; PULSE 66; RESP 17
== END 2024-05-10 12:17 | disposition home or self-care (01) ==
LOC: ORWHC2ENDO 09:25
PROVIDERS: ATTEND Surgery
DX: K63.5 Polyp of colon (principal); K42.9 Umbilical hernia without obstruction or gangrene; K21.9 Gastro-esophageal reflux disease without esophagitis; I10 Essential (primary) hypertension; I48.91 Unspecified atrial fibrillation; E78.5 Hyperlipidemia, unspecified; N40.0 Benign prostatic hyperplasia without lower urinary tract symptoms; G47.33 Obstructive sleep apnea (adult) (pediatric); Z86.0100 Personal history of colon polyps, unspecified; F17.290 Nicotine dependence, other tobacco product, uncomplicated; J30.2 Other seasonal allergic rhinitis; Z87.19 Personal history of other diseases of the digestive system; Z79.899 Other long term (current) drug therapy; Z79.01 Long term (current) use of anticoagulants; Z95.0 Presence of cardiac pacemaker
CPT/HCPCS: 85610; 45378; J2003; J2704

== ENCOUNTER 2024-05-15 05:33 | Day surgery (SDC) | payer MEDICARE, BC ==
[2024-05-15] MEDS: LACTATED RINGERS 1,000 ML IV SCH (06:25)
[2024-05-15] MEDS: IV FLUID CONTINUATION 1,000 ML IV ONE (06:38)
[2024-05-15 06:43] LABS: Basophils % (A) 1 %; Eosinophils # (A) 0.2 k/uL (0-0.7); Eosinophils % (A) 3 %; HCT 46.8 % (39.0-53.0); HGB 15.5 gm/dL (13.0-17.5); Lymphocytes # (A) 1.8 k/uL (1.0-4.8); Lymphocytes % (A) 25 %; MCV 96.9 fL (80.0-100.0); Mean Platelet Volume 7.9; Monocytes # (A) 0.6 k/uL (0-1.0); Monocytes % (A) 8 %; Neutrophils # (A) 4.6 k/uL (1.3-7.7); Neutrophils % (A) 63 %; Platelet Count 175 k/uL (150-450); RBC 4.83 m/uL (4.30-5.90); RDW 12.5 % (11.5-15.5); WBC 7.3 k/uL (3.8-10.6)
[2024-05-15] MEDS: TAMSULOSIN 0.4 MG CAP.ER.24H PO STA (06:55)
[2024-05-15] MEDS: ACETAMINOPHEN TAB 500 MG TAB PO PRN (06:55)
[2024-05-15] MEDS: fentaNYL (PF) 50 MCG/ML 2 ML AMP IVP PRN (07:02)
[2024-05-15] MEDS: ONDANSETRON 4 MG/2 ML VIAL IVP ONE (07:17)
[2024-05-15] MEDS: DEXAMETHASONE SOD PHOSPHATE 4 MG/ML 1 ML VIAL IVP STA (07:18)
[2024-05-15] MEDS: MIDAZOLAM 2 MG/2 ML VIAL IV ONE (07:19)
[2024-05-15] MEDS: HEPARIN SODIUM,PORCINE 5,000 UNIT/ML 1 ML VIAL SQ PRN (07:22)
[2024-05-15] MEDS ORDERED: ROCURONIUM 10 MG/ML (5 ML VIAL) IV ONE (07:32)
[2024-05-15] MEDS ORDERED: PROPOFOL 10 MG/ML 20 ML VIAL IV ONE (07:32)
[2024-05-15] MEDS ORDERED: PHENYLEPHRINE 10 MG/ML VIAL ONE (07:32)
[2024-05-15] MEDS ORDERED: KETOROLAC 15 MG/ML 1 ML VIAL ONE (07:32)
[2024-05-15] MEDS ORDERED: SODIUM CHLORIDE 0.9% (PF) 10 ML VIAL ONE (07:32)
[2024-05-15] MEDS ORDERED: KETAMINE HCL IN 0.9 % NACL 50 MG/5 ML SYRINGE ONE (07:32)
[2024-05-15] MEDS ORDERED: SUCCINYLCHOLINE CHLORIDE 200 MG/10 ML VIAL IV ONE (07:32)
[2024-05-15] MEDS ORDERED: MIDAZOLAM 2 MG/2 ML VIAL ONE (07:32)
[2024-05-15] MEDS ORDERED: NEOSTIGMINE 1 MG/ML 10 ML VIAL ONE (07:32)
[2024-05-15] MEDS ORDERED: ROPIVACAINE 5 MG/ML 30 ML VIAL ONE (07:32)
[2024-05-15] MEDS ORDERED: GLYCOPYRROLATE 0.2 MG/ML 2 ML VIAL ONE (07:32)
[2024-05-15] MEDS ORDERED: LIDOCAINE 1% INJ 10MG/ML (20 ML MDV) ONE (07:32)
[2024-05-15 07:34] LABS: INR 1.1 (<1.2); Prothrombin Time 11.5 sec (10.0-12.5)
[2024-05-15] MEDS: LIDOCAINE 1%-EPI 1:100,000 20 ML VIAL SQ ONE ×2 (08:04)
[2024-05-15 09:06] VITALS: TEMP 96.9
--- NOTE | 2024-05-15 09:06 | P.OP ---
Date of Procedure: 05/15/24 Preoperative Diagnosis: Incarcerated ventral hernia Postoperative Diagnosis: incarcerated incisional hernia Procedure(s) Performed: Laparoscopic robot-assisted incarcerated incisional hernia repair Partial omentectomy Transversus abdominis plane block Anesthesia: MAC Surgeon: Ziyad Ayon Estimated Blood Loss (ml): 5 Pathology: other (Mental) Condition: stable Disposition: PACU Operative Findings: 6 cm incarcerated incisional hernia Description of Procedure: The patient was placed on the operating table in the supine position. He received general anesthesia. His abdomen was prepped and draped usual fashion. Using a 5 mm optical trocar under direct visualization the peritoneal cavity was entered in the left upper quadrant. The abdomen was then insufflated. The laparoscope was placed back into the perineal cavity. Next a 8 mm robotic trocar was placed in the left lower quadrant and a 12 mm robotic trocar was placed in the left lateral position. The original 5 mm trocar was exchanged for a 8 mm robotic trocar. The patient's placed in the left side up position. A four-quadrant transversus abdominis plane blocks performed 1% local Xylocaine. And the patient was docked to the robot. The incisional hernia was visualized. Using hook cautery the peritoneum over the incisional hernia was excised. The incarcerated mentum was dissected free sent pathology. The fascial opening was repaired using 0V LOC suture. Next a piece of 11 cm round ventral light ST mesh was placed into the. Cavity and secured with 2 OV lock suture. The patient was undocked the robot. The needles were retrieved. The fascia of the 12 mm trocar site was closed with 0 Ethibond suture. Skin was closed interrupted 3-0 Monocryl suture. Dermabond dressings was applied. Patient tolerated procedure well and was sent to recovery room stable condition.
[2024-05-15] MEDS: HYDROmorphone 0.5 MG/0.5 ML SYRINGE IVP PRN (09:39)
[2024-05-15 11:42] VITALS: BP 112/73; PULSE 64; RESP 16
--- NOTE | 2024-05-15 12:26 | P.ANPRN ---
Procedure Note - Anesthesia - Nerve Block Performed Bilateral Erector Spinae Single Time Out Performed: Yes (0701) Date of Procedure: 05/15/24 Procedure Start Time: 07:02 Procedure Stop Time: 07:06 Location of Patient: PreOp Indication: Acute Post-Operative Pain, Requested by Surgeon Specifically requested for management of pain by DrElizabeth: Ziyad Ayon Sedation Type: Sedate with meaningful contact maintained Preparation: Sterile Prep Position: Sitting Catheter: None Needle Types: Pajunk Needle Gauge: 21 Ultrasound used to visualize needle placement: Yes Ultrasound used to observe medication spread: Yes Injectate: 0.5% Ropivacaine (see comment for volume) (15cc+10cc nacl pf each side) Blood Aspirated: No Pain Paresthesia on Injection Noted: No Resistance on Injection: Normal Image Stored and Saved: Yes Events: Uneventful and Well Tolerated
== END 2024-05-15 12:17 | disposition home or self-care (01) ==
LOC: OR 05:33
PROVIDERS: ATTEND Surgery
DX: K43.0 Incisional hernia with obstruction, without gangrene (principal); G89.18 Other acute postprocedural pain; I10 Essential (primary) hypertension; I48.91 Unspecified atrial fibrillation; E78.5 Hyperlipidemia, unspecified; G47.33 Obstructive sleep apnea (adult) (pediatric); E66.9 Obesity, unspecified; Z95.0 Presence of cardiac pacemaker; Z79.899 Other long term (current) drug therapy; Z68.34 Body mass index [BMI] 34.0-34.9, adult
CPT/HCPCS: 49594; 64999; 88305; 85025; 85610; C1781; J2250; J0330; J1644; J1100; J2710; J0690; J2405; J2003; J3010; J2795; J1885; J2704; J1171; J2371; J1596

== ENCOUNTER 2024-07-09 05:55 | Inpatient (IN) | payer MEDICARE, BC ==
[2024-07-09] MEDS: ONDANSETRON 4 MG/2 ML VIAL IVP STA (06:49)
[2024-07-09] MEDS: SODIUM CHLORIDE 0.9% 1,000 ML IV STA (06:49)
[2024-07-09] MEDS: HYDROmorphone 0.5 MG/0.5 ML SYRINGE IVP STA ×2 (06:50→07:50)
[2024-07-09 07:02] LABS: Basophils % (A) 0 %; Eosinophils % (A) 0 %; HGB 15.8 gm/dL (13.0-17.5); Lymphocytes # (A) 0.7 k/uL (1.0-4.8); Lymphocytes % (A) 7 %; MCH 31.7 pg (25.0-35.0); MCHC 32.9 g/dL (31.0-37.0); MCV 96.5 fL (80.0-100.0); Mean Platelet Volume 7.9; Monocytes # (A) 0.5 k/uL (0-1.0); Monocytes % (A) 5 %; Neutrophils # (A) 8.2 k/uL (1.3-7.7); Neutrophils % (A) 87 %; Platelet Count 156 k/uL (150-450); RBC 4.98 m/uL (4.30-5.90); RDW 12.3 % (11.5-15.5); WBC 9.4 k/uL (3.8-10.6)
[2024-07-09 07:11] LABS: INR 1.9 (<1.2); Partial Thromboplastin Time 26.3 sec (22.0-30.0)
[2024-07-09 07:13] LABS: African American GFR (CKD) 73 (>60 ml/min/1.73 sqM); Albumin 4.7 g/dL (3.5-5.0); Anion Gap 13 mmol/L; Blood Urea Nitrogen 27 mg/dL (9-20); Calcium 9.9 mg/dL (8.4-10.2); Carbon Dioxide 30 mmol/L (22-30); Chloride 95 mmol/L (98-107); Glucose 158 mg/dL (74-99); Non-African American GFR(CKD) 63 (>60 ml/min/1.73 sqM); Potassium 4.4 mmol/L (3.5-5.1); Sodium 138 mmol/L (137-145); Total Protein 7.9 g/dL (6.3-8.2)
[2024-07-09 07:15] LABS: ALT 29 U/L (4-49); AST 27 U/L (17-59); Alkaline Phosphatase 121 U/L (38-126); Lipase 64 U/L (23-300); Total Bilirubin 1.2 mg/dL (0.2-1.3)
--- NOTE | 2024-07-09 07:15 | ED ---
Abdominal Pain HPI - General Chief Complaint: Abdominal Pain Stated Complaint: Constipation, fall Time Seen by Provider: 07/09/24 06:02 Source: patient, RN notes reviewed Mode of arrival: wheelchair Limitations: no limitations - History of Present Illness Initial Comments: 69-year-old male presents emergency department chief complaint of a fall, abdominal pain. Patient states that he has had abdominal pain constipation of the last week states he is very bloated, distended have increasing abdominal pain and nausea. He states he had a hernia repair 1 month ago. He states he fell on Tuesday slipped on some ice and some steps he complains of left-sided chest pain denies any head injury no loss conscious. Denies any neck pain. He denies any bowel, bladder incontinence retention no lower extremity injuries. - Related Data Home Medications Medication Instructions Recorded Confirmed Tamsulosin [Flomax] 0.4 mg PO HS 10/23/15 07/09/24 Atorvastatin [Lipitor] 40 mg PO DAILY 01/11/18 07/09/24 Warfarin [Coumadin] 2 mg PO SUMOTUWEFRSA@209903/08/19 07/09/24 Docusate [Colace] 100 mg PO DAILY 07/09/24 07/09/24 Warfarin [Coumadin] 3 mg PO TH@2100 07/09/24 07/09/24 Previous Rx's Medication Instructions Recorded Losartan [Cozaar] 100 mg PO DAILY #90 tab 02/28/18 Allergies Allergy/AdvReac Type Severity Reaction Status Date / Time No Known Allergies Allergy Verified 07/09/24 10:24 Review of Systems ROS Statement: Those systems with pertinent positive or pertinent negative responses have been documented in the HPI. ROS Other: All systems not noted in ROS Statement are negative. Past Medical History Past Medical History: Prostate Disorder Additional Past Medical History / Comment(s): SEASONAL ALLERGIERS PROBLEMS, COLITIS History of Any Multi-Drug Resistant Organisms: None Reported Past Surgical History: Pacemaker Additional Past Surgical History / Comment(s): HEMORROIDECTOMY,COLONOSCOPY/EGD,UMBILCAL HERNIA, TILT TABLE TEST, HIATAL HERNIA REPAIR, ablation x3 Past Anesthesia/Blood Transfusion Reactions: No Reported Reaction, Motion Sickness Type of Cardiac Device: Permanent Pacemaker Device Placement Date:: 01/17/18 Past Psychological History: No Psychological Hx Reported Smoking Status: Current every day smoker Past Alcohol Use History: Daily Past Drug Use History: None Reported - Past Family History Mother Family Medical History: Cancer Sister(s) Family Medical History: Cancer Father Family Medical History: No Reported History General Exam Limitations: no limitations General appearance: alert, in no apparent distress Head exam: Present: atraumatic, normocephalic, normal inspection Eye exam: Present: normal appearance, PERRL, EOMI. Absent: scleral icterus, conjunctival injection, periorbital swelling ENT exam: Present: normal exam, mucous membranes moist Neck exam: Present: normal inspection, full ROM. Absent: tenderness, meningismus, lymphadenopathy Respiratory exam: Present: normal lung sounds bilaterally, chest wall tenderness (Left-sided rib tenderness). Absent: respiratory distress, wheezes, rales, rho nchi, stridor Cardiovascular Exam: Present: regular rate, normal rhythm, normal heart sounds. Absent: systolic murmur, diastolic murmur, rubs, gallop, clicks GI/Abdominal exam: Present: soft, distended, tenderness, rigid, normal bowel sounds. Absent: guarding, rebound Back exam: Present: full ROM, tenderness. Absent: CVA tenderness (R), CVA tenderness (L), vertebral tenderness Neurological exam: Present: alert, oriented X3, CN II-XII intact, reflexes normal. Absent: motor sensory deficit Skin exam: Present: warm, dry, intact, normal color. Absent: rash Course Vital Signs 07/09/24 07/09/24 07/09/24 06:03 07:49 10:55 Temperature 97.6 F Pulse Rate 62 60 60 Respiratory 18 18 18 Rate Blood Pressure 173/92 176/98 136/77 O2 Sat by Pulse 99 99 98 Oximetry 07/09/24 11:27 Temperature Pulse Rate Respiratory Rate Blood Pressure O2 Sat by Pulse 97 Oximetry Medical Decision Making - Medical Decision Making Was pt. sent in by a medical professional or institution (, PA, [employer]EN[employer] ADMIN, urgent care, hospital, or assisted...) When possible be specific @ -No Did you speak to anyone other than the patient for history (EMS, parent, family, police, friend...)? What history was obtained from this source @ -No Did you review nursing and triage notes (agree or disagree)? Why? @ -I reviewed and agree with nursing and triage notes Were old charts reviewed (outside hosp., previous admission, EMS record, old EKG, old radiological studies, urgent care reports/EKG's, assisted records)? Report findings @ -No old charts were reviewed Differential Diagnosis (chest pain, altered mental status, abdominal pain women, abdominal pain men, vaginal bleeding, weakness, fever, dyspnea, syncope, headache, dizziness, GI bleed, back pain, seizure, CVA, palpatations, mental health, musculoskeletal)? @ -Differential Abdominal Pain Men: Appendicitis, cholecystitis, diverticulosis, ischemic bowel, pancreatitis, hepatitis, UTI, gastroenteritis, AAA, incarcerated hernia, bowel obstruction, constipation, inflammatory bowel, hepatitis, peptic ulcer disease, splenic infarction, perforated viscus, testicular torsion, this is not meant to be an all-inclusive list EKG interpreted by me (3pts min.). @ -As above X-rays interpreted by me (1pt min.). @ -None done CT interpreted by me (1pt min.). @ -CT chest abdomen pelvis showing rib fractures 7 through 10 with T9 fracture, significant bowel gas distention consistent with ileus. U/S interpreted by me (1pt. min.). @ -None done What testing was considered but not performed or refused? (CT, X-rays, U/S, labs)? Why? @ -None What meds were considered but not given or refused? Why? @ -None Did you discuss the management of the patient with other professionals (professionals i.e. , PA, [employer] ADMIN, lab, RT, psych nurse, web content & social media manager, social science research assistant, teacher, welfare officer, case monitor)? Give summary @ -Discussed the case with Dr. Ayon on-call trauma surgeon for trauma admit with pulmonary consult, pain management and orthopedics Was smoking cessation discussed for >3mins.? @ -No Was critical care preformed (if so, how long)? @ -No Were there social determinants of health that impacted care today? How? (Homelessness, low income, unemployed, alcoholism, drug addiction, transportati on, low edu. Level, literacy, decrease access to med. care, usp, rehab)? @ -No Was there de-escalation of care discussed even if they declined (Discuss DNR or withdrawal of care, Hospice)? DNR status @ -No What co-morbidities impacted this encounter? (DM, HTN, Smoking, COPD, CAD, Cancer, CVA, ARF, Chemo, Hep., AIDS, mental health diagnosis, sleep apnea, morbid obesity)? @ -None Was patient admitted / discharged? Hospital course, mention meds given and route, prescriptions, significant lab abnormalities, going to OR and other pertinent info. @ -Admitted patient's have 4 rib fractures, T9 fracture with significant ileus concerning for possible early obstruction. Patient will be admitted to trauma, surgery with multiple consults. Undiagnosed new problem with uncertain prognosis? @ -No Drug Therapy requiring intensive monitoring for toxicity (Heparin, Nitro, Insulin, Cardizem)? @ -No Were any procedures done? @ -No Diagnosis/symptom? @ -Fall, multiple rib fractures, T9 fracture, ileus Acute, or Chronic, or Acute on Chronic? @ -acute Uncomplicated (without systemic symptoms) or Complicated (systemic symptoms)? @ -complicated Side effects of treatment? @ -No Exacerbation, Progression, or Severe Exacerbation? @ -No Poses a threat to life or bodily function? How? (Chest pain, [place], [place], pneumonia, PE, COPD, DKA, ARF, appy, cholecystitis, CVA, Diverticulitis, Homicidal, Suicidal, threat to staff... and all critical care pts) @ -No - Lab Data Result diagrams: 07/09/24 06:53 07/09/24 06:53 Lab Results 07/09/24 07/09/24 07/09/24 Range/Units 06:53 06:53 06:53 WBC 9.4 (3.8-10.6) k/uL RBC 4.98 (4.30-5.90) m/uL Hgb 15.8 (13.0-17.5) gm/dL Hct 48.0 (39.0-53.0) % MCV 96.5 (80.0-100.0) fL MCH 31.7 (25.0-35.0) pg MCHC 32.9 (31.0-37.0) g/dL RDW 12.3 (11.5-15.5) % Plt Count 156 (150-450) k/uL MPV 7.9 Neutrophils % 87 % Lymphocytes % 7 % Monocytes % 5 % Eosinophils % 0 % Basophils % 0 % Neutrophils # 8.2 H (1.3-7.7) k/uL Lymphocytes # 0.7 L (1.0-4.8) k/uL Monocytes # 0.5 (0-1.0) k/uL Eosinophils # 0.0 (0-0.7) k/uL Basophils # 0.0 (0-0.2) k/uL PT 19.0 H (10.0-12.5) sec INR 1.9 H (<1.2) APTT 26.3 (22.0-30.0) sec Sodium 138 (137-145) mmol/L Potassium 4.4 (3.5-5.1) mmol/L Chloride 95 L (98-107) mmol/L Carbon Dioxide 30 (22-30) mmol/L Anion Gap 13 mmol/L BUN 27 H (9-20) mg/dL Creatinine 1.18 (0.66-1.25) mg/dL Est GFR (CKD-EPI)AfAm 73 (>60 ml/min/1.73 sqM) Est GFR (CKD-EPI)NonAf 63 (>60 ml/min/1.73 sqM) Glucose 158 H (74-99) mg/dL Lactic Ac Sepsis Rflx Plasma Lactic Acid Abel (0.7-2.0) mmol/L Calcium 9.9 (8.4-10.2) mg/dL Total Bilirubin 1.2 (0.2-1.3) mg/dL AST 27 (17-59) U/L ALT 29 (4-49) U/L Alkaline Phosphatase 121 (38-126) U/L Total Protein 7.9 (6.3-8.2) g/dL Albumin 4.7 (3.5-5.0) g/dL Lipase 64 (23-300) U/L 07/09/24 07/09/24 Range/Units 06:53 07:17 WBC (3.8-10.6) k/uL RBC (4.30-5.90) m/uL Hgb (13.0-17.5) gm/dL Hct (39.0-53.0) % MCV (80.0-100.0) fL MCH (25.0-35.0) pg MCHC (31.0-37.0) g/dL RDW (11.5-15.5) % Plt Count (150-450) k/uL MPV Neutrophils % % Lymphocytes % % Monocytes % % Eosinophils % % Basophils % % Neutrophils # (1.3-7.7) k/uL Lymphocytes # (1.0-4.8) k/uL Monocytes # (0-1.0) k/uL Eosinophils # (0-0.7) k/uL Basophils # (0-0.2) k/uL PT (10.0-12.5) sec INR (<1.2) APTT (22.0-30.0) sec Sodium (137-145) mmol/L Potassium (3.5-5.1) mmol/L Chloride (98-107) mmol/L Carbon Dioxide (22-30) mmol/L Anion Gap mmol/L BUN (9-20) mg/dL Creatinine (0.66-1.25) mg/dL Est GFR (CKD-EPI)AfAm (>60 ml/min/1.73 sqM) Est GFR (CKD-EPI)NonAf (>60 ml/min/1.73 sqM) Glucose (74-99) mg/dL Lactic Ac Sepsis Rflx Y Plasma Lactic Acid Abel 2.1 H* (0.7-2.0) mmol/L Calcium (8.4-10.2) mg/dL Total Bilirubin (0.2-1.3) mg/dL AST (17-59) U/L ALT (4-49) U/L Alkaline Phosphatase (38-126) U/L Total Protein (6.3-8.2) g/dL Albumin (3.5-5.0) g/dL Lipase (23-300) U/L Disposition Clinical Impression: T9 vertebral fracture, Multiple rib fractures, Fall, Ileus Disposition: ADMITTED IP TO THIS HOSP Condition: Fair Time of Disposition: 08:48
--- NOTE | 2024-07-09 08:21 | CT ---
EXAMINATION TYPE: CT ChestAbdPelvis wo con DATE OF EXAM: 07/09/2024 7:53 AM COMPARISON: None. CLINICAL INDICATION: Male, 69 years old with history of left chest trauma, abd pain recent surgery; P HH, LT chest trauma from fall, abdominal pain, constipation x 1 week Technique: CT ChestAbdPelvis wo con; Multiple axial images were obtained. Two-dimensional coronal and sagittal reconstructions were obtained. Contrast used: mL of , (None if empty) Oral contrast used: without Oral Contrast CT DLP: 1397.8 mGycm, Automated exposure control for dose reduction was used. Findings: CHEST: LUNGS/ PLEURA: No focal consolidation, pneumothorax or pleural effusion. AIRWAY: Patent and unremarkable. HEART: mildly enlarged for size MEDIASTINUM: No gross evidence of adenopathy. Surgical clips over the lateral aspect of the mediastin um VASCULATURE: No aortic aneurysm. MUSCULOSKELETAL: No fracture seen to the T9 vertebrae is appreciated on sagittal imaging series 205 i mage 7 no extension the posterior elements. Fracture of left ribs 7-10 remote right-sided rib injurie s. With minimal displacement. SOFT TISSUES/LYMPH NODES: Left chest cardiac conduction device with leads terminating in the right ve ntricle and atrium. LOWER NECK: No significant findings. ABDOMEN: ABDOMEN LIVER: Unremarkable GALLBLADDER AND BILE DUCTS: Unremarkable. PANCREAS: Unremarkable. SPLEEN: Unremarkable. ADRENAL GLANDS: Unremarkable. KIDNEYS AND URETERS: No evidence of hydronephrosis or renal calculus. The ureters are unremarkable. PELVIS BLADDER: Unremarkable REPRODUCTIVE: Unremarkable. ABDOMEN & PELVIS STOMACH AND BOWEL: No evidence of bowel obstruction. Gaseous distention of bowel throughout the abdom en. PERITONEUM/RETROPERITONEUM: No evidence of pneumoperitoneum or free fluid. VASCULATURE: No evidence of aortic aneurysm. MUSCULOSKELETAL: No acute osseous abnormalities LYMPH NODES: No gross evidence for lymphadenopathy. SOFT TISSUE/ABDOMINAL WALL: Fat stranding changes near midline hernia definitively visualized. IMPRESSION: 1. T9 vertebral body fracture without evidence of extension into the posterior elements. Mild distra ction. No significant spinal canal stenosis 2. Left ribs 7-10 fractures with minimal displacement. 3. Gaseous distention of bowel throughout the abdomen correlate for ileus. 4. Fat stranding changes along the anterior abdominal wall possibly secondary to recent trauma no he rniated definitively visualized. [facility], , 07/09/2024 8:18 AM
[2024-07-09] MEDS ORDERED: NALOXONE 0.4 MG/ML 1 ML VIAL IV PRN ×2 (08:44→08:45)
[2024-07-09] MEDS: ONDANSETRON 4 MG/2 ML VIAL IVP PRN (10:57)
[2024-07-09] MEDS: HYDROmorphone 0.5 MG/0.5 ML SYRINGE IVP PRN (10:59)
--- NOTE | 2024-07-09 11:49 | CT ---
EXAMINATION TYPE: CT thoracic spine wo con DATE OF EXAM: 07/09/2024 10:41 AM COMPARISON: None. CLINICAL INDICATION: Male, 69 years old with history of T9 traumatic fracture, T9 fracture TECHNIQUE: Contrast used: mL of , (none if empty) Oral contrast used: (none if empty) DLP: 1397.8 Axial images 2 mm thick sections. Reconstructed images in the coronal and sagittal planes. FINDINGS: No significant wedge deformity is identified. Minimal wedge change may be within the T7 vertebral bod y. No acute osseous abnormality at the T7 level is identified. There is exaggeration of the thoracic kyphosis in the mid thoracic spine. Spondylosis is present. No posterior wall displacements are evide nt. There is diffuse loss of disc height throughout the thoracic spine. IMPRESSION: 1. CHANGES OF THE T9 LEVEL APPEAR TO BE SUBTLE. NO SIGNIFICANT POSTERIOR WALL DISPLACEMENT IS EVIDENT . NO SIGNIFICANT WEDGE DEFORMITY T9 SAGITTAL PLANES EVIDENT. THERE IS SOME MORE CHRONIC APPEARING T7 WEDGE CHANGES WHICH MAY BE CHRONIC. IF ADDITIONAL EVALUATION WOULD BE OF BENEFIT, MRI COULD BE PERFOR MED. [facility], , 07/09/2024 11:47 AM
--- NOTE | 2024-07-09 11:55 | P.GSHP ---
History of Present Illness H&P Date: 07/09/24 CHIEF COMPLAINT: Fall HISTORY OF PRESENT ILLNESS: This is a 69-year-old male who reports that he was stepping off his deck on Tuesday and slipped on ice falling and hitting the wood deck step with his back and left side rib cage. He denies hitting his head. Denies any loss of consciousness. He is on blood thinners at home. Patient reports that he laid there for about 7 minutes before he was able to stand on his own and walk inside. He also has been complaining of abdominal pain. He has had constipation for about a week. He is having some flatus. He did have some dry heaves yesterday. He had a abdominal hernia repair about a month ago. He had a CT scan of the chest abdomen pelvis that did report a T9 spinal fracture and left rib fractures on ribs 7-10 with minimal displacement. There was evidence of ileus and fat stranding on the abdominal wall likely secondary to trauma. Consults were placed for spinal service and pulmonary service. Patient denies any shortness of breath or chest pain. Patient is on room air satting at 97%. PAST MEDICAL HISTORY: Prostate disorder PAST SURGICAL HISTORY: Pacemaker,HEMORROIDECTOMY,COLONOSCOPY/EGD,UMBILCAL HERNIA, TILT TABLE TEST, H IATAL HERNIA REPAIR, ablation x3 MEDICATIONS: See below ALLERGIES: See below SOCIAL HISTORY: No illicit drug use. REVIEW OF SYSTEMS: CONSTITUTIONAL: Denies fever or chills. HEENT: Denies blurred vision, vision changes, or eye pain. Denies hemoptysis CARDIOVASCULAR: Denies chest pain or pressure. RESPIRATORY: No shortness of breath. GASTROINTESTINAL: See HPI for pertinent findings HEMATOLOGIC: Denies bleeding disorders. GENITOURINARY: Denies any blood in urine or increased urinary frequency. SKIN: Denies pruitis. Denies rash. PHYSICAL EXAM: VITAL SIGNS: Reviewed GENERAL: Well-developed in no acute distress. HEENT: No sclera icterus. Extraocular movements grossly intact. Moist buccal mucosa. Head is atraumatic, normocephalic. No nasal drainage. CHEST: No use of accessory muscles. ABDOMEN: Distended. Nontender. No erythema noted. Laparoscopic incision sites have healed NEUROLOGIC: Alert and oriented. Cranial nerves II through XII grossly intact. Musculoskeletal. Patient able to move all 4 extremities. Patient does have some tenderness at the thoracic spine. LABORATORY DATA: WBC 9.4 Hgb 15.8 platelets 156 INR 1.9 Sodium 138 potassium 4.4 creatinine 1.18 Lactic acid 2.5 LFTs normal IMAGING: CT scan chest abdomen pelvis reports T9 vertebral body fracture without evidence of extension into the posterior elements. No significant spinal canal stenosis. Left ribs 7 through 10 fractures with minimal displacement. Gaseous distention of bowel throughout the abdomen correlate for ileus. Fat stranding changes along the anterior abdominal wall possibly secondary to recent trauma. No hernia definitively visualized. ASSESSMENT: 1. Fall with trauma causing left rib fractures and T9 vertebral body fracture 2. Left ribs 7 through 10 fractures with minimal displacement secondary to trauma 3. T9 vertebral body fracture secondary to trauma 4. Constipation and ileus PLAN: -Spinal service consulted due to T9 vertebral body fracture -Pulmonary service consulted in regards to rib fractures -Continue pain management -Encourage incentive spirometer use -Consult medicine service for medical management -Soap myron enema added for constipation Physician Service Observer note has been reviewed by physician. Signing provider agrees with the documented findings, assessment, and plan of care. Past Medical History Past Medical History: Prostate Disorder Additional Past Medical History / Comment(s): SEASONAL ALLERGIERS PROBLEMS, COLITIS History of Any Multi-Drug Resistant Organisms: None Reported Past Surgical History: Pacemaker Additional Past Surgical History / Comment(s): HEMORROIDECTOMY,COLONOSCOPY/EGD,UMBILCAL HERNIA, TILT TABLE TEST, HIATAL HERNIA REPAIR, ablation x3 Past Anesthesia/Blood Transfusion Reactions: No Reported Reaction, Motion Sickness Type of Cardiac Device: Permanent Pacemaker Device Placement Date:: 01/17/18 Past Psychological History: No Psychological Hx Reported Smoking Status: Current every day smoker Past Alcohol Use History: Daily Past Drug Use History: None Reported - Past Family History Mother Family Medical History: Cancer Sister(s) Family Medical History: Cancer Father Family Medical History: No Reported History Medications and Allergies Home Medications Medication Instructions Recorded Confirmed Type Tamsulosin [Flomax] 0.4 mg PO HS 10/23/15 07/09/24 History Atorvastatin [Lipitor] 40 mg PO DAILY 01/11/18 07/09/24 History Losartan [Cozaar] 100 mg PO DAILY #90 tab 02/28/18 07/09/24 Rx Warfarin [Coumadin] 2 mg PO [id number]@209903/08/19 07/09/24 History Docusate [Colace] 100 mg PO DAILY 07/09/24 07/09/24 History HYDROcodone/APAP 5-325MG [Bob White 1 each PO Q4HR PRN 3 Days #18 tab 07/09/24 Rx 5-325] Warfarin [Coumadin] 3 mg PO TH@2100 07/09/24 07/09/24 History Allergies Allergy/AdvReac Type Severity Reaction Status Date / Time No Known Allergies Allergy Verified 07/09/24 10:24 Surgical - Exam Vital Signs Temp Pulse Resp BP Pulse Ox 97.6 F 62 18 173/92 99 07/09/24 06:03 07/09/24 06:03 07/09/24 06:03 07/09/24 06:03 07/09/24 06:03 Patient Seen Date: 07/09/24 Patient Seen Time: 10:00 Results - Labs 07/09/24 06:53 07/09/24 06:53 Abnormal Lab Results - Last 24 Hours (Table) 07/09/24 07/09/24 07/09/24 Range/Units 06:53 06:53 06:53 Neutrophils # 8.2 H (1.3-7.7) k/uL Lymphocytes # 0.7 L (1.0-4.8) k/uL PT 19.0 H (10.0-12.5) sec INR 1.9 H (<1.2) Chloride 95 L (98-107) mmol/L BUN 27 H (9-20) mg/dL Glucose 158 H (74-99) mg/dL Plasma Lactic Acid Abel (0.7-2.0) mmol/L 07/09/24 07/09/24 Range/Units 06:53 09:27 Neutrophils # (1.3-7.7) k/uL Lymphocytes # (1.0-4.8) k/uL PT (10.0-12.5) sec INR (<1.2) Chloride (98-107) mmol/L BUN (9-20) mg/dL Glucose (74-99) mg/dL Plasma Lactic Acid Abel 2.1 H* 2.5 H* (0.7-2.0) mmol/L Diabetes panel 07/09/24 Range/Units 06:53 Sodium 138 (137-145) mmol/L Potassium 4.4 (3.5-5.1) mmol/L Chloride 95 L (98-107) mmol/L Carbon Dioxide 30 (22-30) mmol/L BUN 27 H (9-20) mg/dL Creatinine 1.18 (0.66-1.25) mg/dL Glucose 158 H (74-99) mg/dL Calcium 9.9 (8.4-10.2) mg/dL AST 27 (17-59) U/L ALT 29 (4-49) U/L Alkaline Phosphatase 121 (38-126) U/L Total Protein 7.9 (6.3-8.2) g/dL Albumin 4.7 (3.5-5.0) g/dL Calcium panel 07/09/24 Range/Units 06:53 Calcium 9.9 (8.4-10.2) mg/dL Albumin 4.7 (3.5-5.0) g/dL Pituitary panel 07/09/24 Range/Units 06:53 Sodium 138 (137-145) mmol/L Potassium 4.4 (3.5-5.1) mmol/L Chloride 95 L (98-107) mmol/L Carbon Dioxide 30 (22-30) mmol/L BUN 27 H (9-20) mg/dL Creatinine 1.18 (0.66-1.25) mg/dL Glucose 158 H (74-99) mg/dL Calcium 9.9 (8.4-10.2) mg/dL Adrenal panel 07/09/24 Range/Units 06:53 Sodium 138 (137-145) mmol/L Potassium 4.4 (3.5-5.1) mmol/L Chloride 95 L (98-107) mmol/L Carbon Dioxide 30 (22-30) mmol/L BUN 27 H (9-20) mg/dL Creatinine 1.18 (0.66-1.25) mg/dL Glucose 158 H (74-99) mg/dL Calcium 9.9 (8.4-10.2) mg/dL Total Bilirubin 1.2 (0.2-1.3) mg/dL AST 27 (17-59) U/L ALT 29 (4-49) U/L Alkaline Phosphatase 121 (38-126) U/L Total Protein 7.9 (6.3-8.2) g/dL Albumin 4.7 (3.5-5.0) g/dL
--- NOTE | 2024-07-09 12:24 | P.CNOR ---
History of Present Illness - [facility] Consult date: 07/09/24 Requesting physician: Daniel Turner Consult reason: fracture (Acute T9 Fx) History of present illness: Patient is a very pleasant 69-year-old male who is seen examined in emergency room #10 for further evaluation of his thoracic spine. He states over the weekend while walking to his barn he slipped on some ice falling on his left side. He has had significant left-sided rib pain since that time. He is not currently complaining of thoracic pain but denies any previous history of thoracic injury or fracture. He denies any lower extremity weakness or radiculopathy bilaterally. He presented to [facility] for further evaluation. CT imaging of the thoracic spine along with chest/abdomen/pelvis was performed. Patient recently underwent hernia repair with Dr. Ayon. He has had some constipation postoperatively. He has difficulty with his abdomen. He currently has a postop ileus. He is admitted to general surgery. General surgery has placed consultation with pulmonology given rib fractures. Past Medical History Past Medical History: Prostate Disorder Additional Past Medical History / Comment(s): SEASONAL ALLERGIERS PROBLEMS, COLITIS History of Any Multi-Drug Resistant Organisms: None Reported Past Surgical History: Pacemaker Additional Past Surgical History / Comment(s): HEMORROIDEC MITCHELL,COLONOSCOPY/EGD,UMBILCAL HERNIA, TILT TABLE TEST, HIATAL HERNIA REPAIR, ablation x3 Past Anesthesia/Blood Transfusion Reactions: No Reported Reaction, Motion Sickness Type of Cardiac Device: Permanent Pacemaker Device Placement Date:: 01/17/18 Past Psychological History: No Psychological Hx Reported Smoking Status: Current every day smoker Past Alcohol Use History: Daily Past Drug Use History: None Reported - Past Family History Mother Family Medical History: Cancer Sister(s) Family Medical History: Cancer Father Family Medical History: No Reported History Medications and Allergies Home Medications Medication Instructions Recorded Confirmed Type Tamsulosin [Flomax] 0.4 mg PO HS 10/23/15 07/09/24 History Atorvastatin [Lipitor] 40 mg PO DAILY 01/11/18 07/09/24 History Losartan [Cozaar] 100 mg PO DAILY #90 tab 02/28/18 07/09/24 Rx Warfarin [Coumadin] 2 mg PO SUMOTUWEFRSA@2100 03/08/19 07/09/24 History Docusate [Colace] 100 mg PO DAILY 07/09/24 07/09/24 History Warfarin [Coumadin] 3 mg PO TH@2100 07/09/24 07/09/24 History Allergies Allergy/AdvReac Type Severity Reaction Status Date / Time No Known Allergies Allergy Verified 07/09/24 10:24 Physical Examination Physical exam: Patient is awake, alert, and oriented 3 Vital signs stable Adequate chest excursion with deep inspiration and expiration Abdomen significantly distended Examination of thoracic and lumbar spine reveals skin is intact with no abrasions, lacerations, or bruises; no erythema, purulence or signs of infection Dorsiflexion and plantarflexion sitive sustained bilaterally Lower extremity strength 5/5 bilaterally Straight leg test negative bilateral lower extremities No signs or symptoms of DVT; no calf pain No pain with internal and external rotation of the hips bilaterally Neurovascularly intact Results Pertinent studies: CT of the thoracic spine taken on 05/09/2025: T9 fracture through the vertebral body with slight compression height loss without posterior displacement; T7 chronic appearing mild compression fracture deformity; significant anterior osteophytic spurring mid to lower thoracic spine; lower thoracic lateral osteophytic spurring; increased thoracic kyphosis CT of the chest/abdomen/pelvis taken on 07/09/2024: T9 vertebral body fracture without extension to the posterior elements; left-sided rib fractures at 7-10; wound gaseous distention of bowel throughout the abdomen which should correlate for ileus - Labs Labs: Abnormal Lab Results - Last 24 Hours (Table) 07/09/24 07/09/24 07/09/24 Range/Units 06:53 06:53 06:53 Neutrophils # 8.2 H (1.3-7.7) k/uL Lymphocytes # 0.7 L (1.0-4.8) k/uL PT 19.0 H (10.0-12.5) sec INR 1.9 H (<1.2) Chloride 95 L (98-107) mmol/L BUN 27 H (9-20) mg/dL Glucose 158 H (74-99) mg/dL Plasma Lactic Acid Abel (0.7-2.0) mmol/L 07/09/24 07/09/24 Range/Units 06:53 09:27 Neutrophils # (1.3-7.7) k/uL Lymphocytes # (1.0-4.8) k/uL PT (10.0-12.5) sec INR (<1.2) Chloride (98-107) mmol/L BUN (9-20) mg/dL Glucose (74-99) mg/dL Plasma Lactic Acid Abel 2.1 H* 2.5 H* (0.7-2.0) mmol/L H & H 07/09/24 Range/Units 06:53 Hgb 15.8 (13.0-17.5) gm/dL Hct 48.0 (39.0-53.0) % Coagulation 07/09/24 Range/Units 06:53 INR 1.9 H (<1.2) Result Diagrams: 07/09/24 06:53 07/09/24 06:53 Assessment and Plan Assessment: Assessment: Status post fall Acute traumatic left-sided rib fractures 710 Acute T9 fracture through the vertebral body with slight compression height loss status post fall Chronic appearing T7 compression fracture deformity History of recent hernia repair Abdominal pain Possible postoperative ileus Abdominal distention History of prostate disorder (1) Osteophyte Current Visit: Yes Status: Acute Code(s): M25.70 - OSTEOPHYTE, UNSPECIFIED JOINT SNOMED Code(s): 412662863628132 (2) History of hernia repair Current Visit: Yes Status: Acute Code(s): Z98.890 - OTHER SPECIFIED POSTPROCEDURAL STATES; Z87.19 - PERSONAL HISTORY OF OTHER DISEASES OF THE DIGESTIVE SYSTEM SNOMED Code(s): 52471014963880 (3) Rib pain on left side Current Visit: Yes Status: Acute Code(s): R07.81 - PLEURODYNIA SNOMED Code(s): 106079093 (4) T7 vertebral fracture Current Visit: Yes Status: Acute Code(s): S22.069A - UNSP FRACTURE OF T7-T8 VERTEBRA, INIT FOR CLOS FX SNOMED Code(s): 596524643 (5) Prostate disorder Current Visit: Yes Status: Acute Code(s): N42.9 - DISORDER OF PROSTATE, UNSPECIFIED SNOMED Code(s): 83269588 (6) Obesity (BMI 30.0-34.9) Current Visit: Yes Status: Acute Code(s): E66.811 - OBESITY, CLASS 1 SNOMED Code(s): 046052214639818 (7) Fall Current Visit: Yes Status: Acute Code(s): W19.XXXA - UNSPECIFIED FALL, INITIAL ENCOUNTER SNOMED Code(s): 4046982 (8) Ileus Current Visit: Yes Status: Acute Code(s): K56.7 - ILEUS, UNSPECIFIED SNOMED Code(s): 489649150 (9) Multiple rib fractures Current Visit: Yes Status: Acute Code(s): S22.49XA - MULTIPLE FRACTURES OF RIBS, UNSP SIDE, INIT FOR CLOS FX SNOMED Code(s): 1137924 (10) T9 vertebral fracture Current Visit: Yes Status: Acute Code(s): S22.079A - UNSP FRACTURE OF T9-T10 VERTEBRA, INIT FOR CLOS FX SNOMED Code(s): 075220589 Plan: Plan: 1. After reviewing of imaging, physical examination the patient, and further discussion with the patient, will currently have the patient's start working through cnservative treatment at this time. He does have evidence of T9 fracture through the vertebral body with slight compression height loss. He also has multiple left-sided rib fractures 710. At this time we'll plan for bracing. A prescription has been written and provided to case management for a Spinomed TLSO brace. Once this brace is delivered and fitted appropriately, patient should wear this brace while sitting upright at greater than 45, during increase activities, during ambulation. Brace does have to or while lying in bed or while bathing. Following fitting of this brace, patient is clear for discharge from an orthopedic spine standpoint. Following discharge, patient may follow-up with Gustavo Knight PA-C or Dr. [place] at [facility]. 2. Patient will continue to be seen and examined by general surgery. 3. Consultation has been placed with pulmonology per general surgery. Time with Patient: Greater than 30 (Including obtaining history, physical e xamination, reviewing of imaging, and dictation.)
[2024-07-09 14:02] LABS: Appearance,Urine Clear (Clear); Bilirubin,Urine Negative (Negative); Blood,Urine Negative (Negative); Color,Urine Yellow; Glucose,Urine (UA) Negative (Negative); Hyaline Casts,Urine 2 /lpf (0-2); Ketones,Urine 1+ (Negative); Leukocyte Esterase,Urine Negative (Negative); Mucus,Urine Occasional /hpf; Nitrite,Urine Negative (Negative); PH, Urine 5.5 (5.0-8.0); Protein,Urine 1+ (Negative); RBC,Urine 2 /hpf (0-5); Specific Gravity,Urine 1.045 (1.001-1.035); Squamous Epithelial Cell,Urine <1 /hpf (0-4); WBC,Urine 1 /hpf (0-5)
--- NOTE | 2024-07-09 15:34 | P.PAINPG ---
Objective - Vital Signs Vital signs: Vital Signs Temp 97.6 F 07/09/24 06:03 Pulse 60 07/09/24 10:55 Resp 18 07/09/24 10:55 BP 136/77 07/09/24 10:55 Pulse Ox 97 07/09/24 11:27 FiO2 Intake & Output 07/08/24 07/09/24 07/09/24 18:59 06:59 18:59 Weight 109.769 kg - Labs CBC & Chem 7: 07/09/24 06:53 07/09/24 06:53 Labs: Abnormal Lab Results - Last 24 Hours (Table) 07/09/24 07/09/24 07/09/24 Range/Units 06:53 06:53 06:53 Neutrophils # 8.2 H (1.3-7.7) k/uL Lymphocytes # 0.7 L (1.0-4.8) k/uL PT 19.0 H (10.0-12.5) sec INR 1.9 H (<1.2) Chloride 95 L (98-107) mmol/L BUN 27 H (9-20) mg/dL Glucose 158 H (74-99) mg/dL Plasma Lactic Acid Abel (0.7-2.0) mmol/L Ur Specific [place] (1.001-1.035) Urine Protein (Negative) Urine Ketones (Negative) Urine Mucus (None) /hpf 07/09/24 07/09/24 07/09/24 Range/Units 06:53 09:27 11:59 Neutrophils # (1.3-7.7) k/uL Lymphocytes # (1.0-4.8) k/uL PT (10.0-12.5) sec INR (<1.2) Chloride (98-107) mmol/L BUN (9-20) mg/dL Glucose (74-99) mg/dL Plasma Lactic Acid Abel 2.1 H* 2.5 H* 2.5 H* (0.7-2.0) mmol/L Ur Specific [place] (1.001-1.035) Urine Protein (Negative) Urine Ketones (Negative) Urine Mucus (None) /hpf 07/09/24 Range/Units 13:41 Neutrophils # (1.3-7.7) k/uL Lymphocytes # (1.0-4.8) k/uL PT (10.0-12.5) sec INR (<1.2) Chloride (98-107) mmol/L BUN (9-20) mg/dL Glucose (74-99) mg/dL Plasma Lactic Acid Abel (0.7-2.0) mmol/L Ur Specific [place] 1.045 H (1.001-1.035) Urine Protein 1+ H (Negative) Urine Ketones 1+ H (Negative) Urine Mucus Occasional H (None) /hpf PQRS Measure Charge Sheet Comment: HISTORY OF PRESENT ILLNESS: A 69 yr old inpatient male presents today w severe acute L sided rib pain secondary to fall x 2 days for evaluation. Pt states pain level is provoked at 9 /10 in intensity, constant, localized in the mid back and L chest, predominantly axial, sharp/ stabbing in character w occasional shooting pain towards the L chest. Pain is provoked by breathing or any movement. Pain is alleviated by medications (Jackson 5/325mg q4h prn), repositioning and rest . PMH: OA, HTN, Hyperlipidemia, BPH, Seasonal Allergies, Colitis PSH: Hernia Repair (May 2024), Pacemaker (2018), Hemorrhoidectomy, Colonoscopy/ EGD, HH Repair, Ablation x3 SH: Daily tobacco use, Daily ETOH use, No illicit drug use FH: Mo- CA. Sis- CA All: See list Meds: See list REVIEW OF ORGAN SYSTEMS: CONSTITUTIONAL: No fevers or chills. No recent weight loss. NEUROLOGICAL: + numbness and tingling along the distal extremities. No seizure disorders or headaches. MUSCULOSKELETAL: + pain PSYCHIATRIC: Denies current depression or suicidal thoughts. Physical Examinations : Constitutional : Cooperative , not in acute distress . Neurologic : Cranial nerve II to XII intact. No focal neurological deficits. Psychiatric : alert & oriented x 3. Matching mood & appropriate affect. Judgment & insight intact. Musculoskeletal : Cervical Spine Motor strength in the deltoid and biceps: Normal right side. Normal Left side Motor strength biceps and the wrist extensors: Normal right side . Normal left side Motor strength in the triceps muscle: Normal right side. Normal left side Deep tendon reflexes: Normal at the biceps. Normal at Brachioradialis. Normal at triceps Vertebral body tenderness to deep palpation over Cervical facet loading test: positive bilaterally Spurling test: positive bilaterally Neck distraction test: positive bilaterally Alexus sign: positive bilaterally Thoracic spine Ruiz test positive Lumbar spine Motor strength lower extremities ,thigh and legs 5/5 Right side , 5/5 Left side Deep tendon reflexes : Normal Knee Jerk. Normal Ankle Jerk Vertebral body tenderness over Ruiz Test positive Lumbar facet Loading Test: positive Right / positive Left Range of motion of the lumbar spine Flexion 30 degrees, extension 10 degrees Straight Leg Raise test: Left/ Right positive at degrees Noemy test: positive right / positive left. Severe tenderness over the Sacroiliac joint on the Right / Left sides Gaenslen test: positive bilaterally Seated flexion test: positive bilaterally. Sacral spine : Severe tenderness over the Sacroiliac joint: right side / left side Range of motion: Flexion of the lumbar spine <60 degrees Range of motion: Extension of the lumbar spine <20 degrees Gaenslen's Test positive Noemy test: positive right side / left side Thigh Thrust Test Sacral Thrust Test Imaging: CT non contrast Thoracic spine from 07/09/[address] non contrast Chest/ Abd/ Pelvis from 07/09/24 reviewed Assessment/ Plan : T7/ T9 Fractures, L 7th- 10th Rib Fractures, Kyphosis Recommendation of medication management. Short course of [facility] e-script to pharmacy. Use, side effects, adverse reactions, safe storage discussed. Pt states he has had ESIs in the past and they were ineffective in treating his pain due to kyphosis. All questions answered. I have spent greater than 30 minutes on patient care today. Dr Hunter was available by phone for the evaluation of this patient. The time was used to review the medical records including relevant urine studies and Prescription history (MAPs), review of the available imaging, evaluation and examination of the patient, coordination of care with the medical staff and if applicable referring physicians, as well as creation of the medical record PQRS Narrative: Smoking Status Former smoker Blood Pressure 136/77 Pain Intensity 9 Pain Scale Used Numeric (1 - 10) Scale Used Numeric (1 - 10) Home Medications: Ambulatory Orders Tamsulosin [Flomax] 0.4 mg PO HS 10/23/15 Atorvastatin [Lipitor] 40 mg PO DAILY 01/11/18 Losartan [Cozaar] 100 mg PO DAILY #90 tab 02/28/18 Warfarin [Coumadin] 2 mg PO SUMOTUWEFRSA@2100 03/08/19 Docusate [Colace] 100 mg PO DAILY 07/09/24 Warfarin [Coumadin] 3 mg PO TH@2100 07/09/24 Controlled Substance Measures - Controlled Substance Measures Is patient prescribed a controlled substance at discharge?: Yes When asked, does pt state using other controlled substances?: Yes If prescribed controlled substance>3 days was MAPS reviewed?: Prescribed <3 Days
--- NOTE | 2024-07-09 16:18 | P.CNPUL ---
History of Present Illness Consult date: 07/09/24 Requesting physician: Ziyad Ayon Reason for consult: abnormal CXR/CT Chief complaint: Fall with left rib fractures History of present illness: This is a pleasant with a known history of BPH, hypertension, hyperlipidemia, atrial fibrillation anticoagulated with warfarin, permanent pacemaker implantation, chronic and ongoing tobacco dependence he came into the emergency room early this morning after sustaining a fall 2 days ago when he slipped on some ice and fell down 3 steps. He was having left-sided chest pain. Denied loss of consciousness. He is also been having complaints of constipation and bloating since a previous hernia repair on 05/15/2024. CT scan of the chest and abdomen revealed a T9 vertebral body fracture without evidence of extension in the posterior elements. Mild distraction. Left ribs 7 through 10 fractures with minimal displacement. Gaseous distention of the bowel throughout the abdomen correlate for ileus. He is seen today in consultation in the emergency department. Currently sitting up on the stretcher. Awake and alert in no acute distress. He is maintaining good O2 saturations in the upper 90s on room air. He is afebrile. Hemodynamically stable. He denies any worsening shortness of breath, cough or congestion. No hemoptysis. Review of Systems REVIEW OF SYSTEMS: CONSTITUTIONAL: Denies any recent significant weight loss or weight gain. EYES: Denies change in vision. EARS, NOSE, MOUTH, THROAT: Denies headaches, denies sore throat. CARDIOVASCULAR: Positive for left-sided chest wall pain, no palpitations or syncopal episodes. RESPIRATORY: Denies shortness of breath, cough, congestion or hemoptysis. GASTROINTESTINAL: For abdominal distention and discomfort. GENITOURINARY: Denies hematuria, denies infections. MUSKULOSKELETAL: Denies pain, denies swelling. INTEGUMENTARY: Denies rash, denies eczema. NEUROLOGICAL: Denies recent memory loss, no recent seizure activity. PSYCHIATRIC: Denies anxiety, denies depression. HEMATOLOGIC/LYMPHATIC: Denies anemia, denies enlarged lymph nodes. Past Medical History Past Medical History: Prostate Disorder Additional Past Medical History / Comment(s): SEASONAL ALLERGIERS PROBLEMS, COLITIS History of Any Multi-Drug Resistant Organisms: None Reported Past Surgical History: Pacemaker Additional Past Surgical History / Comment(s): HEMORROIDECTOMY,COLONOSCOPY/EGD,UMBILCAL HERNIA, TILT TABLE TEST, HIATAL HERNIA REPAIR, ablation x3 Past Anesthesia/Blood Transfusion Reactions: No Reported Reaction, Motion Sickness Type of Cardiac Device: Permanent Pacemaker Device Placement Date:: 01/17/18 Past Psychological History: No Psychological Hx Reported Smoking Status: Current every day smoker Past Alcohol Use History: Daily Past Drug Use History: None Reported - Past Family History Mother Family Medical History: Cancer Sister(s) Family Medical History: Cancer Father Family Medical History: No Reported History Medications and Allergies Home Medications Medication Instructions Recorded Confirmed Type Tamsulosin [Flomax] 0.4 mg PO HS 10/23/15 07/09/24 History Atorvastatin [Lipitor] 40 mg PO DAILY 01/11/18 07/09/24 History Losartan [Cozaar] 100 mg PO DAILY #90 tab 02/28/18 07/09/24 Rx Warfarin [Coumadin] 2 mg PO SUMOTUWEFRSA@2100 03/08/19 07/09/24 History Docusate [Colace] 100 mg PO DAILY 07/09/24 07/09/24 History HYDROcodone/APAP 5-325MG [[place] 1 each PO Q4HR PRN 3 Days #18 tab 07/09/24 Rx 5-325] Warfarin [Coumadin] 3 mg PO TH@2100 07/09/24 07/09/24 History Allergies Allergy/AdvReac Type Severity Reaction Status Date / Time No Known Allergies Allergy Verified 07/09/24 10:24 Physical Exam Vitals: Vital Signs Temp Pulse Resp BP Pulse Ox 07/09/24 16:03 62 18 07/09/24 11:27 97 07/09/24 10:55 60 18 136/77 98 07/09/24 07:49 60 18 176/98 99 07/09/24 06:03 97.6 F 62 18 173/92 99 Intake and Output 07/09/24 07/09/24 07/09/24 06:59 14:59 22:59 Other: Weight 109.769 kg GENERAL EXAM: Alert, 69-year-old male patient, on room air, fairly comfortable in no apparent distress. HEAD: Normocephalic. EYES: Normal reaction of pupils, equal size. NOSE: Clear with pink turbinates. THROAT: No erythema or exudates. NECK: No masses, no JVD. CHEST: No chest wall deformity. LUNGS: Equal air entry with no crackles, wheeze, rhonchi or dullness. CVS: S1 and S2 normal with no audible murmur, regular rhythm. ABDOMEN: Abdominal distention. No hepatosplenomegaly, normal bowel sounds, no guarding or rigidity. SPINE: No scoliosis or deformity SKIN: No rashes CENTRAL NERVOUS SYSTEM: No focal deficits, tone is normal in all 4 extremities. EXTREMITIES: There is no peripheral edema. No clubbing, no cyanosis. Peripheral pulses are intact. Results - Laboratory Findings CBC and BMP: 07/09/24 06:53 07/09/24 06:53 PT/INR, D-dimer PT 19.0 sec (10.0-12.5) H 07/09/24 06:53 INR 1.9 (<1.2) H 07/09/24 06:53 Abnormal lab findings: Abnormal Labs 07/09/24 07/09/24 07/09/24 06:53 06:53 06:53 Neutrophils # 8.2 H Lymphocytes # 0.7 L PT 19.0 H INR 1.9 H Chloride 95 L BUN 27 H Glucose 158 H Plasma Lactic Acid Abel Ur Specific [place] Urine Protein Urine Ketones Urine Mucus 07/09/24 07/09/24 07/09/24 06:53 09:27 11:59 Neutrophils # Lymphocytes # PT INR Chloride BUN Glucose Plasma Lactic Acid Abel 2.1 H* 2.5 H* 2.5 H* Ur Specific [place] Urine Protein Urine Ketones Urine Mucus 07/09/24 13:41 Neutrophils # Lymphocytes # PT INR Chloride BUN Glucose Plasma Lactic Acid Abel Ur Specific [place] 1.045 H Urine Protein 1+ H Urine Ketones 1+ H Urine Mucus Occasional H - Diagnostic Findings Chest x-ray: image reviewed CT scan - chest: image reviewed Assessment and Plan Assessment: Left-sided chest wall pain secondary to fall down 3 steps with rib fractures 7 through 10 with minimal displacement Subtle fracture at T9 level without displacement secondary to fall Abdominal pain and distention with constipation following hernia surgery repair back in April 2024. Possible ileus Benign hypertension History of atrial fibrillation, anticoagulated with warfarin, status post pacemaker implantation Chronic and ongoing tobacco dependence annual Daily alcohol use Plan: The patient was seen and evaluated Imaging, labs and medications reviewed Currently stable and on room air Add incentive spirometer Assure adequate pain control Increase his activity as tolerated We will continue to follow and make further recommendations based on his clinical status I have personally seen and examined the patient, performed the documentation and the assessment and plan as written. Number of minutes spent on the visit: 20 Dictation was produced using [employer] dictation software. Please excuse any grammatical, word or spelling errors.
[2024-07-09] MEDS: HYDROcodone/APAP 5-325MG 1 EACH TAB PO PRN (22:33)
--- NOTE | 2024-07-10 07:14 | XR ---
EXAMINATION TYPE: XR chest 2V DATE OF EXAM: 07/10/2024 6:41 AM COMPARISON: Chest radiographs from 01/18/2018 CLINICAL INDICATION: Male, 69 years old with history of Chest Trauma; pain TECHNIQUE: XR chest 2V Frontal and lateral views of the chest. FINDINGS: Lungs/Pleura: There is no evidence of pleural effusion, focal consolidation, or pneumothorax. Pulmonary vascularity: Unremarkable. Heart/mediastinum: Cardiomediastinal silhouette is unremarkable. Two lead cardiac conduction device o verlying the left hemithorax with lead tips projecting over the right ventricle and right atrium. Musculoskeletal: No acute osseous pathology. Remote right-sided rib injuries. IMPRESSION: No acute cardiopulmonary disease/process. [facility], , 07/10/2024 7:11 AM
[2024-07-10 07:52] LABS: INR 1.9 (<1.2); Prothrombin Time 19.4 sec (10.0-12.5)
[2024-07-10] MEDS: LOSARTAN 50 MG TAB PO SCH (09:31)
[2024-07-10] MEDS: ATORVASTATIN 40 MG TAB PO SCH (09:31)
[2024-07-10] MEDS: DOCUSATE 100 MG CAP PO SCH (09:31)
[2024-07-10] MEDS: LIDOCAINE 4% PATCH TOPICAL SCH (12:31)
--- NOTE | 2024-07-10 12:35 | P.PN ---
Progress Note - Text Progress Note Date: 07/10/24 Patient is seen and examined today at bedside. He is not having any shortness of breath. He denies any midline pain at his back. He denies any changes in his bilateral lower extremities. Denies any neurologic change. He has pain along his ribs. Denies any midline pain in his back. Physical Exam Afebrile with stable vital signs Abdomen is distended but improving. Chest has good excursion deep and space expiration At his thoracic spine he is nontender to palpation. He is nontender to percussion over his thoracic spine. He is nontender over the mid thoracic or and lower thoracic. He is not having pain at his back. He is sitting up comfortably without pain at his back. He complains of some pain along his ribs where he has fracture. Extremities have not had neurologic change there is no acute neurologic deficit in his lower extremities. No saddle paresthesias Calves and thighs were soft nontender without evidence of DVT. Assessme Acute T9 compression fracture due to fall, stable Ankylosing spondylitis multiple rib fractures Abdominal distention Status post fall at home The patient is not having any posterior pain at T9 and he is not having any pain with mobility through his spine. There is a fracture and he does have ankylosing spondylitis but it appears stable and we will follow this closely with conservative treatment with bracing. I do not have a plan for surgery at this point but if the alignment were to change I discussed the possibly of surgical intervention with him. I think that we can continue with brace treatment for his T9 fracture . From a spine surgery standpoint it is okay for the patient to be discharged with use of a TLSO brace whenever he is out of bed. We need to follow him closely in the next 1 to 2 weeks for recheck evaluation and repeat x-rays. The patient should continue his management from the multiple services including surgery and pulmonary. we will continue to increase the patient's mobilization with therapy while wearing his brace.
--- NOTE | 2024-07-10 13:46 | P.PN ---
Subjective Progress Note Date: 07/10/24 This is a pleasant with a known history of BPH, hypertension, hyperlipidemia, atrial fibrillation anticoagulated with warfarin, permanent pacemaker implantation, chronic and ongoing tobacco dependence he came into the emergency room early this morning after sustaining a fall 2 days ago when he slipped on some ice and fell down 3 steps. He was having left-sided chest pain. Denied loss of consciousness. He is also been having complaints of constipation and bloating since a previous hernia repair on 05/15/2024. CT scan of the chest and abdomen revealed a T9 vertebral body fracture without evidence of extension in the posterior elements. Mild distraction. Left ribs 7 through 10 fractures with minimal displacement. Gaseous distention of the bowel throughout the abdomen correlate for ileus. He is seen today in consultation in the emergency department. Currently sitting up on the stretcher. Awake and alert in no acute distress. He is maintaining good O2 saturations in the upper 90s on room air. He is afebrile. Hemodynamically stable. He denies any worsening shortness of breath, cough or congestion. No hemoptysis. The patient is seen today July 10, 2024 in follow-up on the selective care unit. He is currently sitting up in bed. Awake and alert in no acute distress. Maintaining good O2 saturations in the 90s on room air. His pain is well- managed. INR 1.9. Chest x-ray shows no acute pulmonary process. He is receiving Dilaudid as needed. Lidocaine patch in place. Anticoagulated with warfarin. Well with the incentive spirometer. Objective - Vital Signs Vital signs: Vital Signs Temp 98.2 F 07/10/24 12:00 Pulse 60 07/10/24 12:00 Resp 16 07/10/24 12:00 BP 109/65 07/10/24 12:00 Pulse Ox 94 L 07/10/24 12:00 FiO2 Intake & Output 07/09/24 07/10/24 07/10/24 18:59 06:59 18:59 Intake Total 10 Balance 10 Weight 109.6 kg Intake: IV 10 Invasive Line 1 10 Other: Voiding Method Toilet Toilet # Voids 1 - Exam GENERAL EXAM: Alert, pleasant 69-year-old male, on room air, comfortable in no apparent distress. HEAD: Normocephalic. EYES: Normal reaction of pupils, equal size. NOSE: Clear with pink turbinates. THROAT: No erythema or exudates. NECK: No masses, no JVD. CHEST: No chest wall deformity. LUNGS: Equal air entry with no crackles, wheeze, rhonchi or dullness. CVS: S1 and S2 normal with no audible murmur, regular rhythm. ABDOMEN: Abdominal distention. No hepatosplenomegaly, normal bowel sounds, no guarding or rigidity. SPINE: No scoliosis or deformity SKIN: No rashes CENTRAL NERVOUS SYSTEM: No focal deficits, tone is normal in all 4 extremities. EXTREMITIES: There is no peripheral edema. No clubbing, no cyanosis. Peripheral pulses are intact. - Labs CBC & Chem 7: 07/09/24 06:53 07/09/24 06:53 Labs: Abnormal Lab Results - Last 24 Hours (Table) 07/09/24 07/10/24 Range/Units 13:41 06:55 PT 19.4 H (10.0-12.5) sec INR 1.9 H (<1.2) Ur Specific [place] 1.045 H (1.001-1.035) Urine Protein 1+ H (Negative) Urine Ketones 1+ H (Negative) Urine Mucus Occasional H (None) /hpf Assessment and Plan Assessment: Left-sided chest wall pain secondary to fall down 3 steps with rib fractures 7 through 10 with minimal displacement Subtle fracture at T9 level without displacement secondary to fall, no plans for surgery at this time Abdominal pain and distention with constipation following hernia surgery repair back in April 2024. Possible ileus Benign hypertension History of atrial fibrillation, anticoagulated with warfarin, status post pacemaker implantation Chronic and ongoing tobacco dependence annual Daily alcohol use Plan: The patient was seen and evaluated Chest x-ray, labs and medications reviewed Currently stable and on room air Encouraged the use of the incentive spirometer Assure adequate pain control Increase his activity as tolerated TLSO brace when out of bed Cleared for discharge I have personally seen and examined the patient, performed the documentation and the assessment and plan as written. Number of minutes spent on the visit: 10 Dictation was produced using [employer] dictation software. Please excuse any grammatical, word or spelling errors.
[2024-07-10] MEDS: LACTULOSE 20 GM/30 ML CUP PO SCH (14:06)
--- NOTE | 2024-07-10 14:09 | P.PN ---
Subjective Progress Note Date: 07/10/24 SURGICAL PROGRESS NOTE CHIEF COMPLAINT: Fall with trauma HISTORY OF PRESENT ILLNESS: Patient continues to complain of rib cage pain on the left. He has been able to ambulate a small distance. But does have difficulty with getting out of bed to stand. He did have 3 bowel movements after the enema yesterday. He did receive his back brace. Patient denies chest pain or shortness of breath. Afebrile. PHYSICAL EXAM: VITAL SIGNS: Reviewed. GENERAL: Well-developed in no acute distress. ABDOMEN: Soft. Distended. Nontender NEUROLOGIC: Alert and oriented. Cranial nerves II through XII grossly intact. ASSESSMENT: 1. Fall with trauma causing left rib fractures and T9 vertebral body fracture 2. Left ribs 7 through 10 fractures with minimal displacement secondary to trauma 3. T9 vertebral body fracture secondary to trauma 4. Constipation and ileus PLAN: -Lidoderm patch added to the left rib fractures to help with pain. Continue to work on pain managment -Consult PT OT to help ambulate patient -Lactulose 30 mL 1 every hour x 3 ordered for constipation -Continue incentive spirometer use -Patient has been cleared by orthopedic service and pulmonary service -Anticipate discharge tomorrow Physician Hair Preparer note has been reviewed by physician. Signing provider agrees with the documented findings, assessment, and plan of care. Objective - Vital Signs Vital signs: Vital Signs Temp 98.2 F 07/10/24 12:00 Pulse 60 07/10/24 12:00 Resp 16 07/10/24 12:00 BP 109/65 07/10/24 12:00 Pulse Ox 94 L 07/10/24 12:00 FiO2 Intake & Output 07/09/24 07/10/24 07/10/24 18:59 06:59 18:59 Intake Total 10 Balance 10 Weight 109.6 kg Intake: IV 10 Invasive Line 1 10 Other: Voiding Method Toilet Toilet # Voids 1 - Labs CBC & Chem 7: 07/09/24 06:53 07/09/24 06:53 Labs: Abnormal Lab Results - Last 24 Hours (Table) 07/10/24 Range/Units 06:55 PT 19.4 H (10.0-12.5) sec INR 1.9 H (<1.2)
[2024-07-10] MEDS: chlorproMAZINE 25 MG TAB PO SCH (16:38)
[2024-07-10] MEDS: WARFARIN 2 MG TAB PO SCH (19:51)
[2024-07-10] MEDS: TAMSULOSIN 0.4 MG CAP.ER.24H PO SCH (19:52)
[2024-07-11 07:24] LABS: INR 1.8 (<1.2); Prothrombin Time 18.2 sec (10.0-12.5)
--- NOTE | 2024-07-11 11:26 | P.CONS ---
History of Present Illness - Reason for Consult Consult date: 07/10/24 Medical management Requesting physician: Ziyad Ayon - Chief Complaint Status post fall, left rib fractures - History of Present Illness This is a 69-year-old gentleman with past medical history of recent laparoscopic robotic assisted incarcerated incisional hernia repair on 05/15/2024, atrial fibrillation, PPM, gastroesophageal reflux disease, hyperlipidemia, hypert ension, BPH, colitis, nicotine dependence, daily alcohol use, morbid obesity, BMI 34, presented to the ER status post fall with left sided rib cage pain. reports he slipped on ice and fell down 3 stairs a couple days prior to admission, sustaining left rib fractures. Chest/abdomin/pelvis CT reported T9 vertebral body fracture without evidence of extension in the posterior elements. mild distraction. Left ribs 7 through 10 fractures with minimal displacement. Gaseous distention of bowel throughout the abdomen correlate for ileus. Denies syncope, denies head trauma. Denies palpitations, increased shortness of breath, maintaining O2 sats in the mid to high 90s on room air. Chest x-ray tod reports no evidence of pleural effusion, focal consolidation or pneumothorax. Pulmonary vascularity unremarkable. No acute cardiopulmonary disease process. Pain managed with Dilaudid, Robbins's and lidocaine patch. Complaining of ongoing hiccups and Thorazine initiated. Anticoagulated on warfarin, INR 1.9. Evaluated by orthopedics recommending TLSO brace. Afebrile, normal WBC, hemoglobin 15.8, platelets 156. Creatinine appears near baseline 1.18. Review of Systems ROS Statement: Those systems with pertinent positive or pertinent negative responses have been documented in the HPI. ROS Other: All systems not noted in ROS Statement are negative. Past Medical History Past Medical History: Atrial Fibrillation, GERD/Reflux, Hyperlipidemia, Hypertension, Prostate Disorder Additional Past Medical History / Comment(s): SEASONAL ALLERGIERS PROBLEMS, COLITIS History of Any Multi-Drug Resistant Organisms: None Reported Past Surgical History: Heart Catheterization, Pacemaker Additional Past Surgical History / Comment(s): HEMORROIDECTOMY,COLONOSCOPY/EGD,UMBILCAL HERNIA, TILT TABLE TEST, HIATAL HERNIA REPAIR, ablation x3 Past Anesthesia/Blood Transfusion Reactions: No Reported Reaction, Motion Sickness Type of Cardiac Device: Permanent Pacemaker Device Placement Date:: 01/17/18 Past Psychological History: No Psychological Hx Reported Smoking Status: Light tobacco smoker Past Alcohol Use History: Daily Additional Past Alcohol Use History / Comment(s): 7 beers per day,quit smoking 2005, smokes pipe daily Past Drug Use History: None Reported - Past Family History Mother Family Medical History: Cancer Sister(s) Family Medical History: Cancer Father Family Medical History: No Reported History Medications and Allergies Home Medications Medication Instructions Recorded Confirmed Type Tamsulosin [Flomax] 0.4 mg PO HS 10/23/15 07/09/24 History Atorvastatin [Lipitor] 40 mg PO DAILY 01/11/18 07/09/24 History Losartan [Cozaar] 100 mg PO DAILY #90 tab 02/28/18 07/09/24 Rx Warfarin [Coumadin] 2 mg PO SUMOTUWEFRSA@209903/08/19 07/09/24 History Docusate [Colace] 100 mg PO DAILY 07/09/24 07/09/24 History HYDROcodone/APAP 5-325MG [[place] 1 each PO Q4HR PRN 3 Days #18 tab 07/09/24 Rx 5-325] Warfarin [Coumadin] 3 mg PO TH@2100 07/09/24 07/09/24 History Allergies Allergy/AdvReac Type Severity Reaction Status Date / Time No Known Allergies Allergy Verified 07/09/24 10:24 Physical Exam Vitals: Vital Signs Temp Pulse Pulse Resp BP BP Pulse Ox 07/10/24 14:00 60 16 07/10/24 12:00 98.2 F 60 16 109/65 94 L 07/10/24 09:36 98.3 F 60 16 144/76 98 07/10/24 03:50 97.7 F 62 16 163/92 95 07/09/24 23:28 98 F 60 16 126/81 94 L 07/09/24 21:39 97.5 F L 60 16 146/81 96 07/09/24 21:21 97.1 F L 61 19 130/80 97 07/09/24 21:07 97.1 F L 61 19 130/80 97 07/09/24 18:53 63 18 119/77 96 Intake and Output 07/10/24 07/10/24 07/10/24 06:59 14:59 22:59 Intake Total 10 Balance 10 Intake: IV 10 Invasive Line 1 10 Other: Voiding Method Toilet Toilet # Voids 1 Weight 109.6 kg PHYSICAL EXAM: VITAL SIGNS: [Reviewed] GENERAL: Alert and oriented x 3, sitting up in bed, no acute distress at rest HEENT: Normocephalic ,conjunctivae normal. eyes normal. MMM. NECK: Supple, no JVD. CARDIOVASCULAR: S1, S2, regular rhythm. No murmur RESPIRATION: Unlabored, equal air entry breath sounds diminished. ABDOMEN: Soft, distended, diffuse tenderness. No guarding. no masses palpable. No hepatosplenomegaly.Bowel sounds heard. LEGS: No edema. no swelling , no clubbing, no cyanosis. Positive DP pulses. NERVOUS SYSTEM: Cranial N 2-12 grossly normal. No focal deficits. Skin: Warm and dry, no rash noted. Results CBC & Chem 7: 07/09/24 06:53 07/09/24 06:53 Labs: Abnormal Lab Results - Last 24 Hours (Table) 07/10/24 Range/Units 06:55 PT 19.4 H (10.0-12.5) sec INR 1.9 H (<1.2) Assessment and Plan Assessment: Left-sided rib fractures 7 through 10 with reported minimal displacement secondary to fall down 3 steps T9 vertebral body fracture without displacement secondary to fall Distended abdomen with constipation, reports since his hernia surgery in April 2024, CT reports gaseous distention, correlate for ileus Chronic atrial fibrillation, anticoagulated with warfarin History of permanent pacemaker implantation Hypertension Nicotine dependence Daily alcohol use Morbid obesity, BMI 34 Plan: Continue on current medication regimen ,monitoring and symptomatic treatment. Pain management as per primary. Thorazine ordered for hiccups.MiraLAX , Senokot for constipation .aggressive pulmonary toileting with incentive spirometer reinforced. Increase ambulation as tolerated. Smoking cessation and alcohol abstinence reinforced. discharge planning in progress for tomorrow as per primary/trauma surgery. DC with adequate pain management , daily MiraLAX ,follow-up with PCP in 1 week. The impression and plan of care has been dictated as directed. : I performed a history and examination of this patient, discussed the same with the dictator. I agree with the dictator's note ,documented as a scribe. Any additional findings or plans will be noted.
[2024-07-11] MEDS: HYDROcodone/APAP 7.5-325MG 1 EACH TAB PO PRN (11:39)
[2024-07-11] MEDS: polyethylene glycoL 3350 17 GM POWD.PACK PO SCH (11:52)
[2024-07-11] MEDS: LACTULOSE 20 GM/30 ML CUP PO SCH (11:52)
--- NOTE | 2024-07-11 12:17 | P.PN ---
Progress Note - Text Progress Note Date: 07/11/24 Orthopedic spine: History of present illness: Patient is a very pleasant 69-year-old male who is seen examined for evaluation of his thoracic spine. He states over the weekend while walking to his barn he slipped on some ice falling on his left side. He has had significant left-sided rib pain since that time. He is not currently complaining of thoracic pain but denies any previous history of thoracic injury or fracture. He denies any lower extremity weakness or radiculopathy bilaterally. He presented to [facility] for further evaluation. CT imaging of the thoracic spine along with chest/abdomen/pelvis was performed. Patient recently underwent hernia repair with Dr. Ayon. He has had some constipation postoperatively. He has difficulty with his abdomen. He had 3 bowel movements yesterday after an enema. He still have significant abdominal distention and abdominal pain. He is admitted to general surgery. Patient states he is not experiencing any significant thoracic back pain. He does have some left-sided rib fracture pain. They are currently utilizing a Lidoderm patch for pain control for his left rib fracture pain. Currently, he states he is most uncomfortable at his abdomen. His TLSO brace has been delivered and is at the bedside. He has difficulty wearing this brace currently given his abdominal distention. Physical exam: Patient is awake, alert, and oriented 3 Vital signs stable Adequate chest excursion with deep inspiration and expiration Abdomen significantly distended Dorsiflexion and plantarflexion sitive sustained bilaterally Lower extremity strength 5/5 bilaterally Pertinent studies: CT of the thoracic spine taken on 07/09/2024: T9 fracture through the vertebral body with slight compression height loss without posterior displacement; T7 chronic appearing mild compression fracture deformity; significant anterior osteophytic spurring mid to lower thoracic spine representing ankylosing spondylitis; lower thoracic lateral osteophytic spurring; increased thoracic kyphosis CT of the chest/abdomen/pelvis taken on 07/09/2024: T9 vertebral body fracture without extension to the posterior elements; left-sided rib fractures at 7-10; wound gaseous distention of bowel throughout the abdomen which should correlate for ileus Assessment: Status post fall Acute traumatic left-sided rib fractures 710 Left-sided rib pain Acute T9 fracture through the vertebral body with slight compression height loss status post fall Chronic appearing T7 compression fracture deformity Thoracic ankylosing spondylitis History of recent hernia repair Abdominal pain Postoperative ileus Abdominal distention History of prostate disorder Plan: We will continue with our plan as set forth previously in regards to his thoracic spine. 1. After reviewing of imaging, physical examination the patient, and further discussion with the patient, will currently have the patient's start working through cnservative treatment at this time. He does have evidence of T9 fracture through the vertebral body with slight compression height loss. He also has multiple left-sided rib fractures 710. At this time we'll plan for bracing. A prescription has been written and provided to case management for a TLSO brace. This brace has been delivered and fitted appropriately, patient should wear this brace while sitting upright at greater than 45, during increase activities, during ambulation. Brace does have to or while lying in bed or while bathing. He does have some difficulty wearing this brace currently given his abdominal pain and distention. Patient is clear for discharge from an orthopedic spine standpoint. Following discharge, patient may follow-up with Gustavo Knight PA-C or Dr. [place] at [facility]. 2. Patient will continue to be seen and examined by general surgery. He has been cleared by pulmonology
--- NOTE | 2024-07-11 12:58 | P.PN ---
Subjective Progress Note Date: 07/11/24 SURGICAL PROGRESS NOTE CHIEF COMPLAINT: Fall with trauma HISTORY OF PRESENT ILLNESS: Patient reports he is not feeling well today. He is having the left-sided rib pain. Abdomen also remains distended. He did have a large bowel movement yesterday. Appetite is decreased. He is feeling nauseous. Patient is still requiring the IV Dilaudid to help with pain control. Afebrile. PHYSICAL EXAM: VITAL SIGNS: Reviewed. GENERAL: Well-developed in no acute distress. ABDOMEN: Distended. Nontender NEUROLOGIC: Alert and oriented. Cranial nerves II through XII grossly intact. ASSESSMENT: 1. Fall with trauma causing left rib fractures and T9 vertebral body fracture 2. Left ribs 7 through 10 fractures with minimal displacement secondary to trauma 3. T9 vertebral body fracture secondary to trauma 4. Constipation and ileus PLAN: -Increase [place] to 7.5 every 4 hours as needed for pain. -Will have patient reevaluated by pain service -Soapsud enema ordered for constipation -Consult PT OT to help ambulate patient -Continue incentive spirometer use -Patient has been cleared by orthopedic service and pulmonary service Physician Roll Picker note has been reviewed by physician. Signing provider agrees with the documented findings, assessment, and plan of care. Objective - Vital Signs Vital signs: Vital Signs Temp 97.8 F 07/11/24 09:45 Pulse 80 07/11/24 09:45 Resp 16 07/11/24 09:45 BP 156/83 07/11/24 09:45 Pulse Ox 94 L 07/11/24 09:45 FiO2 Intake & Output 07/10/24 07/11/24 07/11/24 18:59 06:59 18:59 Intake Total 20 10 Output Total 100 150 Balance -80 -140 Weight 109.7 kg Intake: IV 20 10 Invasive Line 1 20 10 Output: Urine 100 150 Other: Voiding Method Toilet Toilet Toilet # Voids 1 - Labs CBC & Chem 7: 07/09/24 06:53 07/09/24 06:53 Labs: Abnormal Lab Results - Last 24 Hours (Table) 07/11/24 Range/Units 06:39 PT 18.2 H (10.0-12.5) sec INR 1.8 H (<1.2)
[2024-07-11 13:40] LABS: Basophils % (A) 0 %; Eosinophils % (A) 0 %; HCT 44.9 % (39.0-53.0); HGB 15.3 gm/dL (13.0-17.5); Lymphocytes # (A) 0.3 k/uL (1.0-4.8); Lymphocytes % (A) 10 %; MCH 33.1 pg (25.0-35.0); MCV 97.4 fL (80.0-100.0); Mean Platelet Volume 9.6; Monocytes # (A) 0.5 k/uL (0-1.0); Monocytes % (A) 18 %; Neutrophils # (A) 2.2 k/uL (1.3-7.7); Neutrophils % (A) 70 %; Platelet Count 172 k/uL (150-450); RBC 4.61 m/uL (4.30-5.90); RDW 13.1 % (11.5-15.5); WBC 3.1 k/uL (3.8-10.6)
[2024-07-11 13:46] LABS: African American GFR (CKD) 56 (>60 ml/min/1.73 sqM); Anion Gap 15 mmol/L; Blood Urea Nitrogen 40 mg/dL (9-20); Calcium 9.7 mg/dL (8.4-10.2); Carbon Dioxide 24 mmol/L (22-30); Chloride 96 mmol/L (98-107); Glucose 167 mg/dL (74-99); Non-African American GFR(CKD) 48 (>60 ml/min/1.73 sqM); Potassium 4.3 mmol/L (3.5-5.1); Sodium 135 mmol/L (137-145)
--- NOTE | 2024-07-11 15:34 | P.PN ---
Subjective Progress Note Date: 07/11/24 This is a pleasant with a known history of BPH, hypertension, hyperlipidemia, atrial fibrillation anticoagulated with warfarin, permanent pacemaker implantation, chronic and ongoing tobacco dependence he came into the emergency room early this morning after sustaining a fall 2 days ago when he slipped on some ice and fell down 3 steps. He was having left-sided chest pain. Denied loss of consciousness. He is also been having complaints of constipation and bloating since a previous hernia repair on 05/15/2024. CT scan of the chest and abdomen revealed a T9 vertebral body fracture without evidence of extension in the posterior elements. Mild distraction. Left ribs 7 through 10 fractures with minimal displacement. Gaseous distention of the bowel throughout the abdomen correlate for ileus. He is seen today in consultation in the emergency department. Currently sitting up on the stretcher. Awake and alert in no acute distress. He is maintaining good O2 saturations in the upper 90s on room air. He is afebrile. Hemodynamically stable. He denies any worsening shortness of breath, cough or congestion. No hemoptysis. The patient is seen today July 10, 2024 in follow-up on the selective care unit. He is currently sitting up in bed. Awake and alert in no acute distress. Maintaining good O2 saturations in the 90s on room air. His pain is well- managed. INR 1.9. Chest x-ray shows no acute pulmonary process. He is receiving Dilaudid as needed. Lidocaine patch in place. Anticoagulated with warfarin. Well with the incentive spirometer. The patient is seen today July 11, 2024 in follow-up on the selective care unit. He is awake and alert in no acute distress. Currently sitting up in a chair at the bedside. TLSO brace in place. Maintaining O2 saturations in the 90s on room air. He is working well with the incentive spirometer. Lidocaine patch in place. Anticoagulated with warfarin. White count 3.1. Hemoglobin 15.3. Platelets 172. INR 1.8. Sodium 135. Potassium 4.3. Bicarb 24. BUN 40. Creatinine 1.48. Glucose 167. Objective - Vital Signs Vital signs: Vital Signs Temp 97.8 F 07/11/24 09:45 Pulse 80 07/11/24 09:45 Resp 16 07/11/24 09:45 BP 156/83 07/11/24 09:45 Pulse Ox 94 L 01/15/25 09:45 FiO2 Intake & Output 07/10/24 07/11/24 07/11/24 18:59 06:59 18:59 Intake Total 20 10 Output Total 100 150 Balance -80 -140 Weight 109.7 kg Intake: IV 20 10 Invasive Line 1 20 10 Output: Urine 100 150 Other: Voiding Method Toilet Toilet Toilet # Voids 1 # Bowel Movements 1 - Exam GENERAL EXAM: Alert, pleasant 69-year-old male, on room air, up in a chair, TLSO brace in place comfortable in no apparent distress. HEAD: Normocephalic. EYES: Normal reaction of pupils, equal size. NOSE: Clear with pink turbinates. THROAT: No erythema or exudates. NECK: No masses, no JVD. CHEST: No chest wall deformity. LUNGS: Equal air entry with no crackles, wheeze, rhonchi or dullness. CVS: S1 and S2 normal with no audible murmur, regular rhythm. ABDOMEN: Abdominal distention. No hepatosplenomegaly, normal bowel sounds, no guarding or rigidity. SPINE: No scoliosis or deformity SKIN: No rashes CENTRAL NERVOUS SYSTEM: No focal deficits, tone is normal in all 4 extremities. EXTREMITIES: There is no peripheral edema. No clubbing, no cyanosis. Peripheral pulses are intact. - Labs CBC & Chem 7: 07/11/24 06:39 07/11/24 06:39 Labs: Abnormal Lab Results - Last 24 Hours (Table) 07/11/24 07/11/24 07/11/24 Range/Units 06:39 06:39 06:39 WBC 3.1 L (3.8-10.6) k/uL Lymphocytes # 0.3 L (1.0-4.8) k/uL PT 18.2 H (10.0-12.5) sec INR 1.8 H (<1.2) Sodium 135 L (137-145) mmol/L Chloride 96 L (98-107) mmol/L BUN 40 H (9-20) mg/dL Creatinine 1.48 H (0.66-1.25) mg/dL Glucose 167 H (74-99) mg/dL Assessment and Plan Assessment: Left-sided chest wall pain secondary to fall down 3 steps with rib fractures 7 through 10 with minimal displacement Subtle fracture at T9 level without displacement secondary to fall, no plans for surgery at this time Abdominal pain and distention with constipation following hernia surgery repair back in April 2024. Possible ileus Benign hypertension History of atrial fibrillation, anticoagulated with warfarin, status post pacemaker implantation Chronic and ongoing tobacco dependence annual Daily alcohol use Plan: The patient was seen and evaluated Labs and medications reviewed Stable and on room air Increased use of the incentive spirometer Adequate pain control Soapsuds enema for constipation Increase his activity as tolerated TLSO brace when out of bed Plan is for home at discharge I have personally seen and examined the patient, performed the documentation and the assessment and plan as written. Number of minutes spent on the visit: 10 Dictation was produced using [employer] dictation software. Please excuse any grammatical, word or spelling errors.
[2024-07-11] MEDS: SENNOSIDES-DOCUSATE SODIUM 1 EACH TAB PO SCH (16:42)
--- NOTE | 2024-07-11 17:36 | P.PN ---
Subjective Progress Note Date: 07/11/24 - History of Present Illness 07/10/2024 This is a 69-year-old gentleman with past medical history of recent laparoscopic robotic assisted incarcerated incisional hernia repair on 05/15/2024, atrial fibrillation, PPM, gastroesophageal reflux disease, hyperlipidemia, hypertension, BPH, colitis, nicotine dependence, daily alcohol use, morbid obesity, BMI 34, presented to the ER status post fall with left sided rib cage pain. reports he slipped on ice and fell down 3 stairs a couple days prior to admission, sustaining left rib fractures. Chest/abdomin/pelvis CT reported T9 vertebral body fracture without evidence of extension in the posterior elements. mild distraction. Left ribs 7 through 10 fractures with minimal displacement. Gaseous distention of bowel throughout the abdomen correlate for ileus. Denies syncope, denies head trauma. Denies palpitations, increased shortness of breath, maintaining O2 sats in the mid to high 90s on room air. Chest x-ray today reports no evidence of pleural effusion, focal consolidation or pneumothorax. Pulmonary vascularity unremarkable. No acute cardiopulmonary disease process. Pain managed with Dilaudid, [employer] and lidocaine patch. Complaining of ongoing hiccups and Thorazine initiated. Anticoagulated on warfarin, INR 1.9. Evaluated by orthopedics recommending TLSO brace. Afebrile, normal WBC, hemoglobin 15.8, platelets 156. Creatinine appears near baseline 1.18. 07/11/2024 sitting up in chair wearing TLSO brace. Denies chest pain, palpitations or shortness of breath. Maintaining O2 sats in the 90s on room air. Anticoagulated on Coumadin per pharmacy dosing, INR 1.8. Renal function worsening, bicarb 24, BUN 40, creatinine 1.48. PT evaluation pending, recently declined due to his abdominal pain. Received MiraLAX, soapsuds enema, Senokot with large bowel movement yesterday, medium sized bowel movement today. Hiccups improved on Thorazine. Objective - Vital Signs Vital signs: Vital Signs Temp 97.8 F 07/11/24 09:45 Pulse 80 07/11/24 09:45 Resp 16 07/11/24 09:45 BP 156/83 07/11/24 09:45 Pulse Ox 94 L 07/11/24 09:45 FiO2 Intake & Output 01/07/11/24 07/11/24 18:59 06:59 18:59 Intake Total 20 10 Output Total 100 150 Balance -80 -140 Weight 109.7 kg Intake: IV 20 10 Invasive Line 1 20 10 Output: Urine 100 150 Other: Voiding Method Toilet Toilet Toilet # Voids 1 # Bowel Movements 1 - Exam PHYSICAL EXAM: VITAL SIGNS: [Reviewed] GENERAL: Alert and oriented x 3, sitting up in chair, wearing brace, no acute distress at rest HEENT: Normocephalic ,conjunctivae normal. eyes normal. MMM. NECK: Supple, no JVD. CARDIOVASCULAR: S1, S2, regular rhythm. No murmur RESPIRATION: Unlabored, equal air entry breath sounds diminished. ABDOMEN: Distended-semifirm, diffuse tenderness. No guarding. no masses palpable.+BS LEGS: No edema. no swelling , no clubbing, no cyanosis. Positive DP pulses. NERVOUS SYSTEM: Cranial N 2-12 grossly normal. No focal deficits. Skin: Warm and dry, no rash noted. - Labs CBC & Chem 7: 07/11/24 06:39 07/11/24 06:39 Labs: Abnormal Lab Results - Last 24 Hours (Table) 07/11/24 07/11/24 07/11/24 Range/Units 06:39 06:39 06:39 WBC 3.1 L (3.8-10.6) k/uL Lymphocytes # 0.3 L (1.0-4.8) k/uL PT 18.2 H (10.0-12.5) sec INR 1.8 H (<1.2) Sodium 135 L (137-145) mmol/L Chloride 96 L (98-107) mmol/L BUN 40 H (9-20) mg/dL Creatinine 1.48 H (0.66-1.25) mg/dL Glucose 167 H (74-99) mg/dL Assessment and Plan Assessment: Left-sided rib fractures 7 through 10 with reported minimal displacement secondary to fall down 3 steps T9 vertebral body fracture without displacement secondary to fall Distended abdomen with constipation, reports since his hernia surgery in April 2024, CT reports gaseous distention, correlate for ileus Chronic atrial fibrillation, anticoagulated with warfarin History of permanent pacemaker implantation Hypertension Nicotine dependence Daily alcohol use Morbid obesity, BMI 34 Plan: Continue on current medication regimen ,monitoring and symptomatic t reatment. Worsening renal function, losartan discontinued, hydralazine with parameters ordered. Close monitoring of renal function with repeat BMP tomorrow.pain management services reconsulted per general surgery .maintain aggressive pulmonary toileting with incentive spirometer reinforced. PT/OT - increase ambulation as tolerated. Smoking cessation and alcohol abstinence reinforced. discharge planning in progress as per primary/trauma surgery. The impression and plan of care has been dictated as directed. : I performed a history and examination of this patient, discussed the same with the dictator. I agree with the dictator's note ,documented as a scribe. Any additional findings or plans will be noted.
[2024-07-11] MEDS: hydrALAZINE HCL 50 MG TAB PO SCH (18:49)
[2024-07-11 22:34] VITALS: RESP 20
[2024-07-12 00:27] VITALS: PULSE 60
--- NOTE | 2024-07-12 00:34 | XR ---
EXAM: XR Chest, 1 View CLINICAL HISTORY: ITS.REASON XR Reason: NG tube placement TECHNIQUE: Frontal view of the chest. COMPARISON: No relevant prior studies available. FINDINGS: Lungs: Low lung volumes, secondary to poor inspiration. No consolidation. Pleural space: Unremarkable. No pneumothorax. Heart: Cardiomegaly. Mediastinum: Unremarkable. Normal mediastinal contour. Bones/joints: Unremarkable. No acute fracture. Tubes, lines and devices: Feeding tube terminates in the stomach. Dilated small bowel, concerning for bowel obstruction. IMPRESSION: Feeding tube terminates in the stomach. Dilated small bowel, concerning for bowel obstruction.
[2024-07-12 04:49] VITALS: BP 136/80; TEMP 97.9
[2024-07-12] MEDS ORDERED: AMIODARONE 50 MG/ML 3 ML VIAL IV ONE (06:43)
[2024-07-12] MEDS ORDERED: CALCIUM CHLORIDE 100 MG/ML 10 ML SYRINGE ONE (06:43)
[2024-07-12] MEDS ORDERED: SODIUM BICARB 8.4% 50 ML SYR (1 MEQ/ML) ONE (06:43)
[2024-07-12] MEDS ORDERED: DEXTROSE 5% IN WATER 50 ML BAG ONE (06:43)
[2024-07-12] MEDS ORDERED: EPINEPHrine 10 ML SYRINGE (0.1 MG/ML) ONE (06:43)
[2024-07-12 06:53] LABS: Glucose,Whole Blood 128 mg/dL (70-110)
--- NOTE | 2024-07-12 07:32 | P.EN ---
CODE BLUE note Activated at 0637. Arrived at the scene shortly after. Case was discussed with the RN and the chart was reviewed. As per the RN, the patient had been attempting to climb out of bed when he suddenly became unresponsive and fell back into the bed and became pulseless. ACLS protocol was initiated. The patient was initially noted to be in PEA and was given epinephrine IV push as per protocol. He was subsequently noted to be in V-fib throughout the arrest and shocked multiple times without ROSC. The patient was given sodium bicarbonate IV push x 2, calcium chloride IV push x 1, amiodarone 300 mg IV push x 1, and amiodarone 150 mg IV push x 1. The patient was given epinephrine IV push as per protocol. The patient's family was contacted and were at the [facility] for the last round of CPR at 0708. CPR was halted at 0708. Discussed the case with the family. The primary team was notified by the RN. Please refer to the code sheet for further details. Total time spent providing critical care for this patient: 45 minutes
[2024-07-12] MEDS ORDERED: WARFARIN 3 MG TAB PO SCH (21:00)
== END 2024-07-12 08:48 | disposition expired | DRG 184 ==
LOC: EC 05:55 → 3SCARD 08:28
PROVIDERS: ADMIT Surgery; ATTEND Surgery
PROC: 5A12012 Performance of Cardiac Output, Single, Manual (ICD-10-PCS; principal; 2024-07-12)
DX: S22.42XA Multiple fractures of ribs, left side, initial encounter for closed fracture (principal); K56.7 Ileus, unspecified; S22.069A Unspecified fracture of T7-T8 vertebra, initial encounter for closed fracture; K91.89 Other postprocedural complications and disorders of digestive system; S22.079A Unspecified fracture of T9-T10 vertebra, initial encounter for closed fracture; N40.0 Benign prostatic hyperplasia without lower urinary tract symptoms; W00.1XXA Fall from stairs and steps due to ice and snow, initial encounter; M25.78 Osteophyte, vertebrae; I46.9 Cardiac arrest, cause unspecified; I49.01 Ventricular fibrillation; Z66 Do not resuscitate; M45.4 Ankylosing spondylitis of thoracic region; I10 Essential (primary) hypertension; E66.811 Obesity, class 1; Z68.34 Body mass index [BMI] 34.0-34.9, adult; E66.01 Morbid (severe) obesity due to excess calories; R06.6 Hiccough; J30.2 Other seasonal allergic rhinitis; E78.5 Hyperlipidemia, unspecified; Y93.01 Activity, walking, marching and hiking; K21.9 Gastro-esophageal reflux disease without esophagitis; F17.200 Nicotine dependence, unspecified, uncomplicated; I48.91 Unspecified atrial fibrillation; Z79.899 Other long term (current) drug therapy; Z95.0 Presence of cardiac pacemaker; Z28.310 Unvaccinated for COVID-19; Z28.9 Immunization not carried out for unspecified reason; Z71.6 Tobacco abuse counseling; Z79.01 Long term (current) use of anticoagulants
CPT/HCPCS: 36415; 71045; 71046; 71250; 72128; 74176; 80048; 80053; 81001; 83605; 83690; 85025; 85610; 85730; 92950; 94760; 96361; 96374; 96375; 96376; 99285